=== PATIENT | male | born 1960 | race Caucasian/White ===

== ENCOUNTER 2017-10-24 05:36 | Outpatient (CLI) | payer BC ==
[~2017-10-24] VITALS: Ht 180.3 cm; Wt 102.1 kg
[~2017-10-24 05:36] MED LIST: AMLO1CAP5 PO; AMLO1TAB47 PO; BNZ20T PO; METO25TA2 PO; OMEP40CA36 PO; ROSU10TA12 PO; WRF2.5T PO
[2017-10-24] MEDS ORDERED: OMEP40CA36 PO (09:12)
[2017-10-24] MEDS ORDERED: ROSU10TA PO (09:12)
[2017-10-24] MEDS ORDERED: WARF2.5T PO (09:12)
[2017-10-24] MEDS ORDERED: BENA20TA72 PO (09:12)
== END 2017-10-24 09:30 | disposition home or self-care (01) ==
LOC: PREOP 05:36
PROVIDERS: ATTEND Surgery
DX: Z01.818 Encounter for other preprocedural examination (principal)

== ENCOUNTER → 2018-05-08 | Outpatient (CLI) | payer BC, OTHER ==
[~2018-05-08] MED LIST changes: +ACHD5005 PO; +ATOR20TA66 PO; +BENA20TA72 PO; +ENOX100D9 SQ; +ESCI20TA45 PO; +ROSU10TA PO; +WARF2.5T PO
[2018-05-08 10:26] LABS: BILIRUBIN,URINE NEGATIVE (NEGATIVE); CLARITY,URINE CLEAR; COLOR,URINE YELLOW; GLUCOSE, URINE (UA) NEGATIVE (NEGATIVE); KETONES,URINE NEGATIVE (NEGATIVE); LEUKOCYTE ESTERASE ,URINE 1+ (NEGATIVE); NITRITE,URINE NEGATIVE (NEGATIVE); PH,URINE 5 (5-9); PROTEIN,URINE 2+ (NEGATIVE); UROBILINOGEN,URINE NORMAL (NORMAL)
[2018-05-08 10:29] LABS: BASOPHILS % (AUTO) 1 % (0-10); EOSINOPHILS # (AUTO) 0.1 10^3/uL (0.0-0.3); EOSINOPHILS % (AUTO) 1 % (0-10); HEMATOCRIT 44 % (40-54); HEMOGLOBIN 15.4 G/DL (13.3-17.7); LYMPHOCYTES # (AUTO) 1.5 X 10^3 (1.0-4.0); LYMPHOCYTES % (AUTO) 19 % (12-44); MEAN CORPUSCULAR HEMOGLOBIN 32 PG (25-34); MEAN CORPUSCULAR HGB CONC 35 G/DL (32-36); MEAN CORPUSCULAR VOLUME 89 FL (80-99); MEAN PLATELET VOLUME 8.9 FL (7.4-10.4); MONOCYTES # (AUTO) 0.8 X 10^3 (0.0-1.0); MONOCYTES % (AUTO) 10 % (0-12); NEUTROPHILS # (AUTO) 5.5 X 10^3 (1.8-7.8); NEUTROPHILS % (AUTO) 70 % (42-75); PLATELET COUNT 308 10^3/uL (130-400); RED BLOOD COUNT 4.89 10^6/uL (4.35-5.85); RED CELL DISTRIBUTION WIDTH 13.4 % (10.0-14.5); WHITE BLOOD COUNT 7.9 10^3/uL (4.3-11.0)
[2018-05-08 10:34] LABS: WBC,URINE 0-2 /HPF
[2018-05-08 10:35] LABS: BACTERIA,URINE TRACE /HPF
[2018-05-08 10:45] LABS: ALANINE AMINOTRANSFERASE 34 U/L (0-55); ALBUMIN 4.3 GM/DL (3.2-4.5); ALKALINE PHOSPHATASE 107 U/L (40-136); BILIRUBIN,TOTAL 0.8 MG/DL (0.1-1.0); BUN/CREATININE RATIO 15; CALCIUM 9.5 MG/DL (8.5-10.1); CARBON DIOXIDE 21 MMOL/L (21-32); CHLORIDE 104 MMOL/L (98-107); GFR ESTIMATED > 60; GLUCOSE 126 MG/DL (70-105); POTASSIUM 4.2 MMOL/L (3.6-5.0); SODIUM 137 MMOL/L (135-145); TOTAL PROTEIN 7.5 GM/DL (6.4-8.2)
[2018-05-08 11:15] LABS: ERYTHROCYTE SEDIMENTATION RATE 18 MM/HR (0-30)
--- NOTE | 2018-05-08 13:12 | Diagnostic Imaging Report ---
CLINICAL INDICATION: Patient with right lower quadrant pain. EXAMINATION: CT scan of the abdomen and pelvis performed without IV contrast. Coronal and sagittal reformatted images are created. COMPARISON: None. FINDINGS: The appendix is enlarged measuring 13 mm in greatest width. Multiple appendicoliths are seen within the appendix and at the orifice of the appendix. There is small amount of adjacent fat stranding extending into the adjacent soft tissue. There is no evidence of intra-abdominal free air or significant fluid collection. There is mild atelectasis involving both lung bases. There are minimal spurs involving the lower lumbar spine. There is lower lumbar spine facet arthropathy. Incompletely imaged mechanical heart aortic valve is noted. There are multiple circumscribed low-density areas seen throughout the liver with most seen in the left side of the liver. The largest one measures 1.6 cm in greatest axial dimension. These likely represent cysts. Otherwise, remainder of the liver is unremarkable. There is some relatively increased density adjacent to the gallbladder fossa which may represent focal fatty sparing. The spleen, pancreas, gallbladder, and adrenal glands are unremarkable. Both kidneys are unremarkable with no hydronephrosis, mass, or urinary tract stone. There are small mesenteric lymph nodes seen. The bladder is partially fluid-filled. There is bladder wall thickening which may be related to incomplete distention, but cystitis cannot be completely excluded. Prostate gland is within normal limits as visualized. There is a few colonic diverticula with no CT evidence of diverticulitis. Abdominal aorta is nonaneurysmal. The extra-abdominal and extra-pelvic soft tissue structures are unremarkable. IMPRESSION: 1: Unruptured acute appendicitis. There is a small amount of free fluid adjacent to the appendix and right lower quadrant. 2: There is bladder wall thickening which may be related to incomplete fluid distention. Cystitis also cannot be completely excluded. 3: Likely liver cysts. Results of this report discussed with Dr. Bronson Madrigal via the telephone on 05/08/2018 at 1300 hrs. Dictated by: Dictated on workstation # [id number]
== END ==
LOC: RAD 10:10
PROVIDERS: ATTEND Internal Medicine
DX: K35.80 Unspecified acute appendicitis (principal); N32.89 Other specified disorders of bladder
CPT/HCPCS: 36415; 74176; 80053; 81000; 85025; 85652

== ENCOUNTER 2020-04-22 22:54 | Emergency (ER) | payer BC ==
[~2020-04-22] VITALS: Ht 180 cm; Wt 109.7 kg
[~2020-04-22 22:54] MED LIST changes: +OMEP40CA27 PO; -ROSU10TA PO; +ROSU10TA22 PO; -WARF2.5T PO
[2020-04-22] MEDS ORDERED: fentaNYL INJECTION 100 MCG/2 ML AMP IVP ONE (23:15)
[2020-04-22] MEDS ORDERED: LABETALOL HCL 20 MG/4 ML VIAL IV ONE (23:15)
[2020-04-22 23:20] LABS: BASOPHILS # (AUTO) 0.1 10^3/uL (0.0-0.1); BASOPHILS % (AUTO) 1 % (0-10); EOSINOPHILS # (AUTO) 0.1 10^3/uL (0.0-0.3); EOSINOPHILS % (AUTO) 1 % (0-10); HEMATOCRIT 43 % (40-54); HEMOGLOBIN 14.9 g/dL (13.3-17.7); LYMPHOCYTES # (AUTO) 1.3 10^3/uL (1.0-4.0); LYMPHOCYTES % (AUTO) 20 % (12-44); MEAN CORPUSCULAR HEMOGLOBIN 32 pg (25-34); MEAN CORPUSCULAR HGB CONC 35 g/dL (32-36); MEAN CORPUSCULAR VOLUME 91 fL (80-99); MONOCYTES # (AUTO) 0.6 10^3/uL (0.0-1.0); MONOCYTES % (AUTO) 9 % (0-12); NEUTROPHILS # (AUTO) 4.6 10^3/uL (1.8-7.8); NEUTROPHILS % (AUTO) 69 % (42-75); PLATELET COUNT 302 10^3/uL (130-400); WHITE BLOOD COUNT 6.7 10^3/uL (4.3-11.0)
[2020-04-22 23:31] LABS: INR 2.5 (0.8-1.4); PROTHROMBIN TIME PATIENT 27.3 SEC (12.2-14.7)
[2020-04-22 23:41] LABS: ALANINE AMINOTRANSFERASE 61 U/L (0-55); ALBUMIN 4.1 GM/DL (3.2-4.5); ALKALINE PHOSPHATASE 107 U/L (40-136); BILIRUBIN,TOTAL 0.5 MG/DL (0.1-1.0); BUN/CREATININE RATIO 15; CALCIUM 8.6 MG/DL (8.5-10.1); CARBON DIOXIDE 23 MMOL/L (21-32); CHLORIDE 102 MMOL/L (98-107); CREATININE SERUM 0.85 MG/DL (0.60-1.30); GFR ESTIMATED > 60; GLUCOSE 172 MG/DL (70-105); MAGNESIUM 1.9 MG/DL (1.6-2.4); POTASSIUM 3.8 MMOL/L (3.6-5.0); SODIUM 137 MMOL/L (135-145); TOTAL PROTEIN 7.1 GM/DL (6.4-8.2)
[2020-04-23] MEDS ORDERED: amLODIPine 10 MG (NORVASC) TAB PO ONE
[2020-04-23 00:02] LABS: TSH (THYROID ANALYZER) 7.82 UIU/ML (0.35-4.94)
--- NOTE | 2020-04-23 00:38 | ED General ---
General Chief Complaint: Cardiac/General Problems Stated Complaint: HIGH BP, JACOBS Nursing Triage Note: TO ED VIA POV AND AMBULATORY TO ROOM 6 TO WHICH FRANTICALLY CHASED PT STATING, "CALL ME SOON THE DR TELLS YOU WHAT IS GOING ON" THE THEN TOLD THIS INHALATION THERAPIST/RN TO HAVE PT CHARGE HIS PHONE, THE PT THEN THREW THE PHONE [employer] AT HIS . REMINDED THAT THERE ARE NO VISITORS AT THIS TIME R/T COVID AND SHE WOULD NEED TO WAIT IN CAR. DURING TRIAGE PT C/O HEADACHE FOR 10 DAYS AND STATES HE SAW PCP TODAY AND WAS GIVEN RX FOR PREDNISONE FOR "DEEP SINUSITIS". STATES HIS SBP WAS IN 180s AT HOME. DENIES VISION CHANGES. 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 Nursing Sepsis Screen: No Definite Risk Source of Information: Patient Exam Limitations: No Limitations History of Present Illness Date Seen by Provider: Apr 22, 2020 Time Seen by Provider: 23:04 Initial Comments This 59 year old gentleman presents to the ER with primary complaints of headache and hypertension. He notes headache has been present for about 10 days. He had visited his primary care provider and was placed on azithromycin and prednisone on suspicion that he was suffering from sinusitis. He noted duane vated blood pressure today at home with systolic blood pressures in the 180s. On arrival his systolic blood pressure was 209. He denies any neurologic changes except for some vision change a couple of days ago and persistent headache. He is on warfarin due to aortic valve replacement. The surgery was performed because of a bicuspid aortic valve. He denied excessive stimulant use or drug use. He does not smoke. He does intermittently drink alcohol stating he typically drinks about 3 beers 3 or 4 days a week. He reports not drinking any alcohol for about a week. Allergies and Home Medications Allergies Coded Allergies: Iodinated Contrast- Oral and IV Dye (Verified Allergy, Unknown, 10/24/17) Home Medications Amlodipine Besylate 10 Mg Tablet, 10 MG PO DAILY Prescribed by: COREEN LOPEZ on 04/23/20 0044 Atorvastatin Calcium 20 Mg Tablet, 20 MG PO HS, (Reported) Benazepril HCl 20 Mg Tablet, 20 MG PO HS, (Reported) Enoxaparin Sodium 100 Mg/1 Ml Syringe, 100 MG SQ BID Prescribed by: ZEUS INMAN on 05/09/18 1133 Escitalopram Oxalate 20 Mg Tablet, 20 MG PO HS, (Reported) Hydrocodone Bit/Acetaminophen 1 Tab Tab, 1 TAB PO Q6H PRN for PAIN-MODERATE Prescribed by: SHARLENE GOMEZ on 05/08/18 1616 Omeprazole 40 Mg Capsule.dr, 40 MG PO HS, (Reported) Warfarin Sodium 2.5 Mg Tablet, 2.5 MG PO HS, (Reported) Patient Home Medication List Home Medication List Reviewed: Yes Review of Systems Review of Systems Constitutional: no symptoms reported EENTM: see HPI Respiratory: no symptoms reported Cardiovascular: see HPI; No chest pain Gastrointestinal: no symptoms reported Genitourinary: no symptoms reported Musculoskeletal: no symptoms reported Skin: no symptoms reported Psychiatric/Neurological: See HPI Hematologic/Lymphatic: No Symptoms Reported Immunological/Allergic: no symptoms reported Past Fuhohya-Gndetb-Vfgyzf Hx Past Med/Social Hx: Reviewed Nursing Past Med/Soc Hx Patient Social History Alcohol Use: Regular Use Number of Drinks Today: AA Alcohol Beverage of Choice: Beer Recreational Drug Use: No Smoking Status: Former Smoker Type Used: Cigars, Smokeless Tobacco Former Smoker, Quit: May 07, 2008 Recent Foreign Travel: No Contact w/Someone Who Travel: No Recent Infectious Disease Expo: No Recent Hopitalizations: No Physical Abuse: No Sexual Abuse: No Mistreated: No Fear: No Seasonal Allergies Seasonal Allergies: Yes Past Medical History Surgeries: Yes Appendectomy, Cardiac, Open Heart Surgery, Valve Replacement Respiratory: Yes Sleep Apnea Currently Using CPAP: Yes (DOES NOT WEAR IT) Currently Using BIPAP: No Cardiac: Yes (AORTIC VALVE REPLACEMENT 2007) High Cholesterol, Hypertension, Valvular Heart Disease Neurological: No Vertigo Reproductive Disorders: No Sexually Transmitted Disease: No HIV/AIDS: No Gastrointestinal: Yes Gastroesophageal Reflux, Chronic Constipation Musculoskeletal: No Endocrine: No HEENT: Yes (GLASSES) Loss of Vision: Bilateral Hearing Impairment: Denies Cancer: No Psychosocial: Yes Depression Integumentary: No Blood Disorders: Yes (Anticoagulated on warfarin) Adverse Reaction/Blood Tranf: No (N/A) Physical Exam Vital Signs Vital Signs - First Documented 04/22/20 04/23/20 23:02 01:14 Temp 35.9 Pulse 81 Resp 20 B/P (MAP) 186/112 (136) Pulse Ox 97 O2 Delivery Room Air Capillary Refill : Less Than 3 Seconds Height, Weight, BMI Height: 5'11.00" Weight: 241lbs. 0.0oz. 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 as Tested Skin: Normal Color, Warm/Dry Progress/Results/Core Measures Suspected Sepsis Recent Fever Within 48 Hours: No Infection Criteria Present: None New/Unexplained Altered Menta: No Sepsis Screen: No Definite Risk SIRS Temperature: Pulse: 81 Respiratory Rate: 20 Laboratory Tests 04/22/20 23:10: White Blood Count 6.7 Blood Pressure 186 /112 Mean: 136 Laboratory Tests 04/22/20 23:10: Creatinine 0.85, INR Comment 2.5H, Platelet Count 302, Total Bilirubin 0.5 Results/Orders Lab Results Laboratory Tests Test 04/22/20 23:10 Range/Units White Blood Count 6.7 4.3-11.0 10^3/uL Red Blood Count 4.69 4.30-5.52 10^6/uL Hemoglobin 14.9 13.3-17.7 g/dL Hematocrit 43 40-54 % Mean Corpuscular Volume 91 80-99 fL Mean Corpuscular Hemoglobin 32 25-34 pg Mean Corpuscular Hemoglobin Concent 35 32-36 g/dL Red Cell Distribution Width 12.8 10.0-14.5 % Platelet Count 302 130-400 10^3/uL Mean Platelet Volume 9.0 9.0-12.2 fL Immature Granulocyte % (Auto) 0 % Neutrophils (%) (Auto) 69 42-75 % Lymphocytes (%) (Auto) 20 12-44 % Monocytes (%) (Auto) 9 0-12 % Eosinophils (%) (Auto) 1 0-10 % Basophils (%) (Auto) 1 0-10 % Neutrophils # (Auto) 4.6 1.8-7.8 10^3/uL Lymphocytes # (Auto) 1.3 1.0-4.0 10^3/uL Monocytes # (Auto) 0.6 0.0-1.0 10^3/uL Eosinophils # (Auto) 0.1 0.0-0.3 10^3/uL Basophils # (Auto) 0.1 0.0-0.1 10^3/uL Immature Granulocyte # (Auto) 0.0 0.0-0.1 10^3/uL Prothrombin Time 27.3 H 12.2-14.7 SEC INR Comment 2.5 H 0.8-1.4 Sodium Level 137 135-145 MMOL/L Potassium Level 3.8 3.6-5.0 MMOL/L Chloride Level 102 98-107 MMOL/L Carbon Dioxide Level 23 21-32 MMOL/L Anion Gap 12 5-14 MMOL/L Blood Urea Nitrogen 13 7-18 MG/DL Creatinine 0.85 0.60-1.30 MG/DL Estimat Glomerular Filtration Rate > 60 BUN/Creatinine Ratio 15 Glucose Level 172 H 70-105 MG/DL Calcium Level 8.6 8.5-10.1 MG/DL Corrected Calcium 8.5 8.5-10.1 MG/DL Magnesium Level 1.9 1.6-2.4 MG/DL Total Bilirubin 0.5 0.1-1.0 MG/DL Aspartate Amino Transf (AST/SGOT) 33 5-34 U/L Alanine Aminotransferase (ALT/SGPT) 61 H 0-55 U/L Alkaline Phosphatase 107 40-136 U/L B-Type Natriuretic Peptide 61.6 <100.0 PG/ML Total Protein 7.1 6.4-8.2 GM/DL Albumin 4.1 3.2-4.5 GM/DL Free Thyroxine 0.82 0.70-1.48 NG/DL TSH Spark[facility] Testing 7.82 H 0.35-4.94 UIU/ML Serum Alcohol < 10 <10 MG/DL My Orders Orders - COREEN KAYE MD Fentanyl Injection (Sublimaze Injection (04/22/20 23:15) Labetalol Injection (Normodyne Injection (04/22/20 23:15) Ed Iv/Invasive Line Start (04/22/20 23:09) Ekg Tracing (04/22/20 23:09) Monitor-Rhythm Ecg Trace Only (04/22/20 23:09) BNP (04/22/20 23:09) Cbc With Automated Diff (04/22/20 23:09) Comprehensive Metabolic Panel (04/22/20 23:09) Magnesium (04/22/20 23:09) Protime With Inr (04/22/20 23:09) Thyroid Analyzer (04/22/20 23:09) Ct Head Wo (04/22/20 23:09) Chest 1 View, Ap/Pa Only (04/22/20 23:17) Alcohol (04/22/20 23:19) Amlodipine Tablet (Norvasc Tablet) (04/23/20 00:00) Free T4 (Free Thyroxine) (04/22/20 23:10) Medications Given in ED Current Medications Medications Dose Ordered Sig/Opal Route Start Time Stop Time Status Last Admin Dose Admin Amlodipine Besylate 10 mg ONCE ONCE PO 04/23/20 00:00 04/23/20 00:01 DC 04/23/20 00:02 10 MG Fentanyl Citrate 75 mcg ONCE ONCE IVP 04/22/20 23:15 04/22/20 23:16 DC 04/22/20 23:14 75 MCG Labetalol HCl 20 mg ONCE ONCE IV 04/22/20 23:15 04/22/20 23:16 DC 04/22/20 23:14 20 MG Vital Signs/I&O 04/22/20 12 23:02 01:14 Temp 35.9 35.9 Pulse 81 71 Resp 20 16 B/P (MAP) 186/112 (136) 158/96 (136) Pulse Ox 97 O2 Delivery Room Air Room Air Capillary Refill : Less Than 3 Seconds Blood Pressure Mean: 136 Progress Note : Progress Note Headache was treated with fentanyl. Labetalol 20 mg IV was given for treatment of his blood pressure. These medications improved his headache greatly and dropped his blood pressure. Labetalol was followed with amlodipine 10 mg orally. His blood pressure remained in acceptable range. His severe persistent headache in the context of very high blood pressure and warfarin use prompted CT of the head. No acute abnormalities such as intracranial hemorrhage were identified. The suspected sinusitis was not seen on CT scan. He was advised to stop the antibiotics. He was also advised to stay away from alcohol use to avoid the possible labile blood pressures resulting from fluctuating alcohol use. ECG Initial ECG Impression Date: Apr 23, 2020 Initial ECG Impression Time: 23:08 Initial ECG Rate: 76 Initial ECG Rhythm: Normal Sinus Comment Sinus rhythm with no ST elevation or depression. GA interval slightly long at 221 ms. LVH with secondary repolarization noted. Diagnostic Imaging Diagonstic Imaging: CT Plain Films/CT/US/NM/MRI: head Comments CT head viewed by me and stat rad report reviewed. No acute abnormalities were appreciated. Specifically, there was no evidence of intracranial hemorrhage or sinusitis. Diagonstic Imaging: Xray Plain Films/CT/US/NM/MRI: chest Comments Chest x-ray viewed by me. Report not yet available. Borderline cardiomegaly with no other acute abnormalities appreciated. Departure Impression Primary Impression: Hypertensive emergency Additional Impression: Acute head injury Qualified Codes: S09.90XA - Unspecified injury of head, initial encounter Disposition: HOME, SELF-CARE Condition: Improved Departure-Patient Inst. Decision time for Depature: 00:40 Referrals: AMITA BAUMAN DO (PCP/Family) Primary Care Physician Patient Instructions: High Blood Pressure in Adults Add. Discharge Instructions: You may stop prednisone as you do not have acute sinusitis on your CT scan and prednisone may make your blood pressure worse. Also do not take NSAID medications such as ibuprofen or naproxen, as this can cause high blood pressure in some individuals. You may take Tylenol (acetaminophen) for your headache. Likewise you may also stop the azithromycin antibiotic. Avoid use of alcohol as this may cause significant fluctuations in your blood pressure. Drink plenty of water and avoid excessive salt. Also avoid stimulants such as caffeine, diet pills, decongestant medications, energy drinks, etc. that may elevate your blood pressure. Follow-up with your primary care provider soon as possible for a repeat blood pressure check and medication review. Start amlodipine as prescribed. Call or return to the emergency room if you have worsening symptoms. If you have more than one consecutive measurement greater than 180 on the top number and greater than 110 on the bottom number, or secondary symptoms of high blood pressure such as severe headache or changes in vision, please return to the emergency room. All discharge instructions reviewed with patient and/or family. Voiced understanding. Scripts Amlodipine Besylate (Amlodipine Besylate) 10 Mg Tablet 10 MG PO DAILY, #30 TAB Prov: COREEN KAYE MD 04/23/20 Copy Copies To 1: AMITA BAUMAN JOSHUA T MD Apr 23, 2020 00:38
[2020-04-23] MEDS ORDERED: AMLO-251 PO (00:44)
[2020-04-23 00:48] LABS: FREE T4 (FREE THYROXINE) 0.82 NG/DL (0.70-1.48)
[2020-04-23 01:14] VITALS: BP 158/96
--- NOTE | 2020-04-23 04:36 | Diagnostic Imaging Report ---
Indication: Hypertension There are postoperative changes from a median sternotomy. Heart size and pulmonary vascularity are normal. Lungs are clear. There are no effusions or pneumothoraces. IMPRESSION: No acute abnormalities in the chest Dictated by: Dictated on workstation # [id number]
--- NOTE | 2020-04-23 07:44 | Diagnostic Imaging Report ---
PROCEDURE: CT head without contrast. TECHNIQUE: Multiple contiguous axial images were obtained through the brain without the use of intravenous contrast. Auto Exposure Controls were utilized during the CT exam to meet ALARA standards for radiation dose reduction. INDICATION: Headache and elevated blood pressure. COMPARISON: None available. FINDINGS: No parenchymal hemorrhage, midline shift, or mass effect. Samuel-white matter differentiation is adequately preserved, without evidence of acute territorial infarct. No significant white matter changes. Ventricles, cisterns, and sulci are normal. There are no epidural or subdural collections. The orbits and globes are unremarkable. Visualized paranasal sinuses and mastoid air cells are clear. There is no calvarial lesion or fracture. The extracranial soft tissues are unremarkable. IMPRESSION: No acute intracranial abnormality. Findings are in agreement with initial teleradiology report. Dictated by: Dictated on workstation # [id number]
== END 2020-04-23 01:14 | disposition home or self-care (01) ==
LOC: EDUNIT# 22:54 → ER 22:56
DX: S09.90XA Unspecified injury of head, initial encounter (principal); I16.1 Hypertensive emergency; I10 Essential (primary) hypertension; E78.00 Pure hypercholesterolemia, unspecified; F32.9 Major depressive disorder, single episode, unspecified; K21.9 Gastro-esophageal reflux disease without esophagitis; Z87.891 Personal history of nicotine dependence; Z91.041 Radiographic dye allergy status; Z79.01 Long term (current) use of anticoagulants; X58.XXXA Exposure to other specified factors, initial encounter
CPT/HCPCS: 70450; 71045; 80053; 83735; 83880; 84439; 84443; 85025; 85610; 93005; 93041; 99284; G0480; 36415; 80320; 96374; 96375

== ENCOUNTER 2020-06-02 13:51 | Inpatient (IN) | payer BC ==
[~2020-06-02] VITALS: Ht 180.4 cm; Wt 131.0 kg
[~2020-06-02 13:51] MED LIST changes: +AMLO-251 PO; -ESCI20TA45 PO; +ESCI20TA56 PO
[2020-06-02] MEDS ORDERED: ACETAMINOPHEN 500 MG TAB (TYLENOL) ONE (14:26)
[2020-06-02] MEDS ORDERED: LACTATED RINGERS 1,000 ML IV ONE ×3 (14:26→18:15)
[2020-06-02] MEDS ORDERED: ACETAMINOPHEN 500 MG TAB (TYLENOL) PO PRN (14:45)
--- NOTE | 2020-06-02 14:47 | ED Respiratory ---
General Chief Complaint: Cough/Cold/Flu Symptoms Stated Complaint: FEVER,COUGH, POSSIBLE REACTION TO VACCINE Source: patient Exam Limitations: no limitations History of Present Illness Date Seen by Provider: Jun 02, 2020 Time Seen by Provider: 14:18 Initial Comments Patient presents ER by private conveyance from home with chief complaint of body aches chills fever T-max of 102. He says the symptoms started about 1:00 yesterday afternoon when he was having lunch in [place] with his . Earlier that morning they went to their primary care provider in [place] and had basic labs and were given vaccines for tetanus, influenza and pneumonia. Patient was not having any symptoms prior to this. Patient states his is asymptomatic and has no other known sick contacts. He has had a dry nonproductive cough. He was given a prescription for an albuterol MDI by his primary care team when he called them and relayed his symptoms. He has no history of lung disease. He does have a history of a bicuspid mitral valve replaced with mechanical device on Coumadin. They also prescribed him another CPAP machine which he has been reliant upon for 20 years. He says he has not actually been using it for the past 20 years. He also has not went and picked it up yet. He denies history of smoking. He denies a history of coronary artery disease. Allergies and Home Medications Allergies Coded Allergies: Iodinated Contrast Media (Verified Allergy, Unknown, 10/24/17) Home Medications Amlodipine Besylate 10 Mg Tablet, 10 MG PO HS, (Reported) Escitalopram Oxalate 20 Mg Tablet, 40 MG PO HS, (Reported) TAKES 2 (20MG) TABS Losartan Potassium 100 Mg Tablet, 100 MG PO HS, (Reported) Multivitamin 1 Each Tablet, 1 EACH PO DAILY, (Reported) Omeprazole 40 Mg Capsule.dr, 40 MG PO HS, (Reported) Pantoprazole Sodium 40 Mg Tablet.dr, 40 MG PO HS, (Reported) Sucralfate 1 Gm Tablet, 1 GM PO QIDACHS PRN for ULCER FLAREUP, (Reported) Ubidecarenone 30 Mg Capsule, 30 MG PO HS, (Reported) Warfarin Sodium 2.5 Mg Tablet, 2.5 MG PO HS, (Reported) [Osteo Biflex W/Turme] TAB, 1 EA PO HS, (Reported) Patient Home Medication List Home Medication List Reviewed: Yes Review of Systems Review of Systems Constitutional: chills, fever, malaise EENTM: No ear discharge, No ear pain Respiratory: cough; No phlegm; short of breath; No wheezing Cardiovascular: No chest pain, No palpitations Gastrointestinal: No abdominal pain, No nausea Genitourinary: No discharge, No dysuria Musculoskeletal: No back pain, No joint pain Psychiatric/Neurological: Denies Anxiety, Denies Depressed All Other Systems Reviewed Negative Unless Noted: Yes Past Ixqleor-Ymvpja-Qrekpa Hx Patient Social History Alcohol Use: Occasionally Uses Alcohol Beverage of Choice: Beer Smoking Status: Former Smoker Type Used: Cigars, Smokeless Tobacco Former Smoker, Quit: May 07, 2008 Recent Hopitalizations: No Seasonal Allergies Seasonal Allergies: Yes Past Medical History Surgeries: Yes Appendectomy, Cardiac, Open Heart Surgery, Valve Replacement Respiratory: Yes Sleep Apnea Currently Using CPAP: Yes (DOES NOT WEAR IT) Currently Using BIPAP: No Cardiac: Yes (AORTIC VALVE REPLACEMENT 2007) High Cholesterol, Hypertension, Valvular Heart Disease Neurological: No Vertigo Reproductive Disorders: No Sexually Transmitted Disease: No HIV/AIDS: No Gastrointestinal: Yes Gastroesophageal Reflux, Chronic Constipation Musculoskeletal: No Endocrine: No HEENT: Yes (GLASSES) Loss of Vision: Bilateral Hearing Impairment: Denies Cancer: No Psychosocial: Yes Depression Integumentary: No Blood Disorders: Yes (Anticoagulated on warfarin) Adverse Reaction/Blood Tranf: No (N/A) Physical Exam Vital Signs - First Documented 06/02/20 14:55 Temp 38.8 Pulse 102 Resp 36 B/P (MAP) 157/96 (116) Pulse Ox 98 O2 Delivery Room Air Capillary Refill : Height: 5'11.00" Weight: 241lbs. 0.0oz. 109.902195bk; 33.00 BMI Method:Stated General Appearance: WD/WN, moderate distress Eyes: Bilateral Eye Normal Inspection, Bilateral Eye PERRL, Bilateral Eye EOMI HEENT: PERRL/EOMI, TMs normal; No pharynx normal (Dry oral mucosa) Neck: non-tender, full range of motion, normal inspection Respiratory: lungs clear, normal breath sounds, no accessory muscle use, respiratory distress (Mild to moderate with tachypnea 35 and sat of 94 to 95% on room air.) Cardiovascular: normal peripheral pulses, regular rate, rhythm Gastrointestinal: normal bowel sounds, non tender, soft Neurologic/Psychiatric: alert, normal mood/affect Skin: normal color, warm/dry Focused Exam Sepsis Stage: Sepsis Possible Source: Pulmonary Lactate Level 06/02/20 14:20: Lactic Acid Level 1.79 Time of Focused Exam: 16:45 Respiratory: Lungs Clear, Normal Breath Sounds, No Accessory Muscle Use, Respiratory Distress (2lpm NC) Cardiovascular: Regular Rate, Rhythm, Normal Peripheral Pulses Capillary Refill: Less Than 3 Seconds Peripheral Pulses: 2+ Radial Pulses (R), 2+ Radial Pulses (L) Skin: normal color, warm/dry Lactic Acid Level Laboratory Tests Test 06/02/20 14:20 Lactic Acid Level 1.79 MMOL/L (0.50-2.00) Within 3hrs of presentation: Admin fluids, Admin ABX, Blood cultures prior to ABX's, Focus exam, Lactate level Progress/Results/Core Measures Suspected Sepsis SIRS Temperature: Pulse: Respiratory Rate: Laboratory Tests 06/02/20 14:20: White Blood Count 13.1H Blood Pressure / Mean: 06/02/20 14:20: Lactic Acid Level 1.79 Laboratory Tests 06/02/20 14:20: Creatinine 0.84, INR Comment 3.5H, Platelet Count 295, Total Bilirubin 1.3H Results/Orders Lab Results Laboratory Tests Test 06/02/20 14:20 06/02/20 14:45 Range/Units White Blood Count 13.1 H 4.3-11.0 10^3/uL Red Blood Count 4.72 4.30-5.52 10^6/uL Hemoglobin 15.0 13.3-17.7 g/dL Hematocrit 44 40-54 % Mean Corpuscular Volume 92 80-99 fL Mean Corpuscular Hemoglobin 32 25-34 pg Mean Corpuscular Hemoglobin Concent 34 32-36 g/dL Red Cell Distribution Width 13.1 10.0-14.5 % Platelet Count 295 130-400 10^3/uL Mean Platelet Volume 9.2 9.0-12.2 fL Immature Granulocyte % (Auto) 1 % Neutrophils (%) (Auto) 86 H 42-75 % Lymphocytes (%) (Auto) 6 L 12-44 % Monocytes (%) (Auto) 7 0-12 % Eosinophils (%) (Auto) 0 0-10 % Basophils (%) (Auto) 0 0-10 % Neutrophils # (Auto) 11.3 H 1.8-7.8 10^3/uL Lymphocytes # (Auto) 0.8 L 1.0-4.0 10^3/uL Monocytes # (Auto) 0.9 0.0-1.0 10^3/uL Eosinophils # (Auto) 0.0 0.0-0.3 10^3/uL Basophils # (Auto) 0.0 0.0-0.1 10^3/uL Immature Granulocyte # (Auto) 0.1 0.0-0.1 10^3/uL Neutrophils % (Manual) 82 % Lymphocytes % (Manual) 8 % Monocytes % (Manual) 7 % Band Neutrophils 3 % Blood Morphology Comment NORMAL Prothrombin Time 35.3 H 12.2-14.7 SEC INR Comment 3.5 H 0.8-1.4 Activated Partial Thromboplast Time 84 H 24-35 SEC Sodium Level 133 L 135-145 MMOL/L Potassium Level 3.8 3.6-5.0 MMOL/L Chloride Level 98 98-107 MMOL/L Carbon Dioxide Level 26 21-32 MMOL/L Anion Gap 9 5-14 MMOL/L Blood Urea Nitrogen 12 7-18 MG/DL Creatinine 0.84 0.60-1.30 MG/DL Estimat Glomerular Filtration Rate > 60 BUN/Creatinine Ratio 14 Glucose Level 133 H 70-105 MG/DL Lactic Acid Level 1.79 0.50-2.00 MMOL/L Calcium Level 8.8 8.5-10.1 MG/DL Corrected Calcium 8.7 8.5-10.1 MG/DL Total Bilirubin 1.3 H 0.1-1.0 MG/DL Aspartate Amino Transf (AST/SGOT) 23 5-34 U/L Alanine Aminotransferase (ALT/SGPT) 45 0-55 U/L Alkaline Phosphatase 82 40-136 U/L C-Reactive Protein High Sensitivity 6.39 H 0.00-0.50 MG/DL Total Protein 7.0 6.4-8.2 GM/DL Albumin 4.1 3.2-4.5 GM/DL Procalcitonin 0.13 H <0.10 NG/ML Coronavirus (COVID-19)(PCR) Negative Negative Coronavirus 2018 (BRUNO) Negative Negative Blood Gas Puncture Site UNK Blood Gas Patient Temperature 101.8 Arterial Blood pH 7.39 7.37-7.43 Arterial Blood Partial Pressure CO2 46 H 35-45 MMHG Arterial Blood Partial Pressure O2 55 L 79-93 MMHG Arterial Blood HCO3 27 23-27 MMOL/L Arterial Blood Total CO2 27.9 21.0-31.0 MMOL/L Arterial Blood Oxygen Saturation 74 L 94-100 % Arterial Blood Base Excess 2.4 -2.5-2.5 MMOL/L Joaquim Test UNK Blood Gas Ventilator Setting NO Blood Gas Inspired Oxygen N/A Micro Results Microbiology 06/02/20 Influenza Types A,B Antigen (VIJI) - Final, Complete My Orders Orders - ANSON LAI Lactated Ringers (Lr 1000 Ml Iv Solution (06/02/20 14:26) Acetaminophen Tablet (Tylenol Tablet) (06/02/20 14:26) Cbc With Automated Diff (06/02/20 14:39) Comprehensive Metabolic Panel (06/02/20 14:39) Blood Culture (06/02/20 14:39) Sputum Culture (06/02/20 14:39) Urinalysis (06/02/20 14:39) Urine Culture (06/02/20 14:39) Protime With Inr (06/02/20 14:39) Partial Thromboplastin Time (06/02/20 14:39) Chest 1 View, Ap/Pa Only (06/02/20 14:39) Acetaminophen Tablet (Tylenol Tablet) (06/02/20 14:45) Ed Iv/Invasive Line Start (06/02/20 14:39) Ed Iv/Invasive Line Start (06/02/20 14:39) Vital Signs Adult Sepsis Patie Q15M (06/02/20 14:39) O2 (06/02/20 14:39) Remove Rings In Anticipation O (06/02/20 14:39) Lactic Acid Analyzer (06/02/20 14:39) Influenza A And B Antigens (06/02/20 14:39) Lactated Ringers (Lr 1000 Ml Iv Solution (06/02/20 14:45) Covid 19 Inhouse Test (06/02/20 14:39) Coronavirus Sars-Cov-2 So 2018 (06/02/20 14:39) Arterial Blood Gas (06/02/20 14:39) Procalcitonin (Pct) (06/02/20 14:47) Hs C Reactive Protein (06/02/20 14:47) Manual Differential (06/02/20 14:20) General/Regular (06/02/20 Lunch) Piperacillin Sodium/Tazobactam (Zosyn Vi (06/02/20 15:45) Vancomycin Injection (Vancomycin Injecti (06/02/20 15:44) Medications Given in ED Vital Signs/I&O 06/02/20 06/02/20 14:55 14:55 Temp 38.8 Pulse 102 Resp 36 B/P (MAP) 157/96 (116) Pulse Ox 98 O2 Delivery Room Air 06/03/20 00:00 Intake Total 1000 ml Balance 1000 ml Capillary Refill : Progress Note : Time: 14:46 Progress Note The patient deposits that he thinks the vaccines caused his symptoms today. His symptoms started within a couple hours and are more likely to be from an infectious source. We have ordered COVID-19 testing, influenza testing, septic work-up because of his tachypnea, fever and heart rate in the 90s. We have ordered 2 L of fluids and held off on any antibiotics until we see evidence of a bacterial infection. PT/INR, CRP and procalcitonin. Diagnostic Imaging Diagonstic Imaging: Xray Plain Films/CT/US/NM/MRI: chest Comments NAME: PASTORA ZARATE [facility] REC#: [id number] PT STATUS: REG ER : 1960 PHYSICIAN: ANSON LAI MD ADMIT DATE: 06/02/20/ER Draft Date of Exam:06/02/20 CHEST 1 VIEW, AP/PA ONLY HISTORY: Cough and fever, sepsis. COMPARISON: 04/22/2020. TECHNIQUE: Frontal view of the chest. FINDINGS: There is hazy opacity in the left midlung. No pleural effusion or pneumothorax is seen. The cardiac silhouette is mildly large but stable since the prior exam. Sternotomy wires are noted. IMPRESSION: Hazy opacity in the left midlung, may represent infection in the appropriate clinical setting. Dictated on workstation # [id number] Dict: 06/02/20 1536 Trans: 06/02/[address] [facility] [id number] Interpreted by: PAKO RING MD Electronically signed by: Reviewed: Reviewed by Me Departure Communication (Admissions) Time/Spoke to Admitting Phy: 17:00 Discussed the case with Dr. Forte and she agrees to take the patient to the floor on Rocephin and azithromycin. Impression Primary Impression: Pneumonia Qualified Codes: J18.9 - Pneumonia, unspecified organism Additional Impressions: Person under investigation for COVID-19 Acute respiratory failure with hypoxemia Disposition: ADMITTED INPATIENT Condition: Stable (ERASED) Admissions Decision to Admit Reason: Admit from ER (General) Decision to Admit/Date: Jun 03, 2020 Time/Decision to Admit Time: 16:00 Departure-Patient Inst. Referrals: AMITA BAUMAN DO (PCP/Family) Primary Care Physician ANSON LAI Jun 02, 2020 14:47
[2020-06-02 14:51] LABS: ABG BASE EXCESS 2.4 MMOL/L (-2.5-2.5); ABG OXYGEN SATURATION 74 % (94-100); ABG PCO2 46 MMHG (35-45); ABG PH 7.39 (7.37-7.43); ABG PO2 55 MMHG (79-93); ABG TCO2 27.9 MMOL/L (21.0-31.0)
[2020-06-02 14:53] LABS: PATIENT TEMP 101.8; VENTILATOR NO
[2020-06-02 14:53] LABS: BASOPHILS % (AUTO) 0 % (0-10); EOSINOPHILS % (AUTO) 0 % (0-10); HEMATOCRIT 44 % (40-54); LYMPHOCYTES # (AUTO) 0.8 10^3/uL (1.0-4.0); LYMPHOCYTES % (AUTO) 6 % (12-44); MEAN CORPUSCULAR HEMOGLOBIN 32 pg (25-34); MEAN CORPUSCULAR HGB CONC 34 g/dL (32-36); MEAN CORPUSCULAR VOLUME 92 fL (80-99); MEAN PLATELET VOLUME 9.2 fL (9.0-12.2); MONOCYTES # (AUTO) 0.9 10^3/uL (0.0-1.0); MONOCYTES % (AUTO) 7 % (0-12); NEUTROPHILS # (AUTO) 11.3 10^3/uL (1.8-7.8); NEUTROPHILS % (AUTO) 86 % (42-75); PLATELET COUNT 295 10^3/uL (130-400); WHITE BLOOD COUNT 13.1 10^3/uL (4.3-11.0)
[2020-06-02 14:56] LABS: ALBUMIN 4.1 GM/DL (3.2-4.5)
[2020-06-02 14:57] LABS: CHLORIDE 98 MMOL/L (98-107); INR 3.5 (0.8-1.4); POTASSIUM 3.8 MMOL/L (3.6-5.0); PROTHROMBIN TIME PATIENT 35.3 SEC (12.2-14.7); SODIUM 133 MMOL/L (135-145)
[2020-06-02 14:58] LABS: CALCIUM 8.8 MG/DL (8.5-10.1)
[2020-06-02 14:59] LABS: GLUCOSE 133 MG/DL (70-105)
[2020-06-02 15:00] LABS: CARBON DIOXIDE 26 MMOL/L (21-32)
[2020-06-02 15:01] LABS: BILIRUBIN,TOTAL 1.3 MG/DL (0.1-1.0)
[2020-06-02 15:03] LABS: ALKALINE PHOSPHATASE 82 U/L (40-136); CREATININE SERUM 0.84 MG/DL (0.60-1.30); GFR ESTIMATED > 60
[2020-06-02 15:04] LABS: BUN/CREATININE RATIO 14
[2020-06-02 15:06] LABS: ALANINE AMINOTRANSFERASE 45 U/L (0-55)
[2020-06-02 15:08] LABS: BAND NEUTROPHILS 3 %; LYMPHOCYTES % (MANUAL) 8 %; MONOCYTES % (MANUAL) 7 %; NEUTROPHILS % (MANUAL) 82 %; RBC MORPH NORMAL
--- NOTE | 2020-06-02 15:38 | Diagnostic Imaging Report ---
HISTORY: Cough and fever, sepsis. COMPARISON: 04/22/2020. TECHNIQUE: Frontal view of the chest. FINDINGS: There is hazy opacity in the left midlung. No pleural effusion or pneumothorax is seen. The cardiac silhouette is mildly large but stable since the prior exam. Sternotomy wires are noted. IMPRESSION: Hazy opacity in the left midlung, may represent infection in the appropriate clinical setting. Dictated by: Dictated on workstation # [id number]
[2020-06-02] MEDS ORDERED: VANCOMYCIN INJECTION 2,000 MG in NS IV 500 ML 500 ML IV ONE (15:44)
[2020-06-02] MEDS ORDERED: PIPERACILLIN SODIUM/TAZOBACTAM 4.5 GM in NS (IVPB) 100 ML IV ONE (15:45)
--- NOTE | 2020-06-02 17:30 | NUR ---
PT ADMITTED TO ROOM 430 AT THIS TIME. BEDSIDE REPORT RECEIVED. ORIENTED PT TO ROOM/CALL LIGHT.
--- NOTE | 2020-06-02 19:17 | NUR ---
PHARMACY NOTIFIED OF MEDICATIONS NOT IN [facility]. PHARMACY REPORTS THEY HAVE RECEIVED BRIDGE ORDERS.
[2020-06-02] MEDS: LACTATED RINGERS 1,000 ML IV SCH (19:20)
[2020-06-02 19:30] VITALS: BP 134/71
[2020-06-02] MEDS ORDERED: ONDANSETRON 4 MG/2 ML (SDV) Z0FRAN IV PRN (19:30)
[2020-06-02] MEDS ORDERED: CATHETER FLUSH 10 ML SYR IV PRN (19:30)
[2020-06-02] MEDS: warFARin 2.5 MG (COUMADIN) TAB PO SCH (20:04)
[2020-06-02] MEDS: cefTRIAXone 1,000 MG/SWFI 10 ML IV PUSH IV SCH ×2 (20:04)
[2020-06-02] MEDS: AZITHROMYCIN 500 MG/NS 250 ML IVPB IV SCH ×2 (20:39)
[2020-06-03] VITALS (9 sets, daily range): BP systolic 104–159; BP diastolic 57–84
[2020-06-03] MEDS: LACTATED RINGERS 1,000 ML IV SCH ×4 (02:37→18:04)
[2020-06-03] MEDS ORDERED: RT-ALBUTEROL INHALER HFA (VENTOLIN HFA) 18 GM IH PRN (04:30)
[2020-06-03 06:12] LABS: BASOPHILS # (AUTO) 0.1 10^3/uL (0.0-0.1); BASOPHILS % (AUTO) 0 % (0-10); EOSINOPHILS % (AUTO) 0 % (0-10); HEMATOCRIT 40 % (40-54); HEMOGLOBIN 13.7 g/dL (13.3-17.7); LYMPHOCYTES # (AUTO) 1.1 10^3/uL (1.0-4.0); LYMPHOCYTES % (AUTO) 7 % (12-44); MEAN CORPUSCULAR HEMOGLOBIN 32 pg (25-34); MEAN CORPUSCULAR HGB CONC 34 g/dL (32-36); MEAN CORPUSCULAR VOLUME 93 fL (80-99); MEAN PLATELET VOLUME 9.2 fL (9.0-12.2); MONOCYTES # (AUTO) 1.6 10^3/uL (0.0-1.0); MONOCYTES % (AUTO) 10 % (0-12); NEUTROPHILS # (AUTO) 12.5 10^3/uL (1.8-7.8); NEUTROPHILS % (AUTO) 82 % (42-75); PLATELET COUNT 257 10^3/uL (130-400); WHITE BLOOD COUNT 15.3 10^3/uL (4.3-11.0)
[2020-06-03 06:21] LABS: INR 2.6 (0.8-1.4); PROTHROMBIN TIME PATIENT 28.1 SEC (12.2-14.7)
[2020-06-03 06:29] LABS: ALANINE AMINOTRANSFERASE 31 U/L (0-55); ALBUMIN 3.6 GM/DL (3.2-4.5); ALKALINE PHOSPHATASE 68 U/L (40-136); BILIRUBIN,TOTAL 1.3 MG/DL (0.1-1.0); BUN/CREATININE RATIO 15; CALCIUM 8.4 MG/DL (8.5-10.1); CARBON DIOXIDE 23 MMOL/L (21-32); CHLORIDE 101 MMOL/L (98-107); CREATININE SERUM 0.78 MG/DL (0.60-1.30); GFR ESTIMATED > 60; GLUCOSE 112 MG/DL (70-105); POTASSIUM 3.5 MMOL/L (3.6-5.0); SODIUM 135 MMOL/L (135-145); TOTAL PROTEIN 6.3 GM/DL (6.4-8.2)
--- NOTE | 2020-06-03 06:58 | Diagnostic Imaging Report ---
HISTORY: Pneumonia. COMPARISON: 06/02/2020 TECHNIQUE: Frontal view of the chest. FINDINGS: Lung volumes are decreased. There does appear to be increased airspace opacity at the lung bases bilaterally. The cardiac silhouette is mildly prominent but stable in size. Sternotomy wires and valve prosthesis are noted. There is no pleural effusion or pneumothorax. IMPRESSION: Bibasilar airspace opacities, may be due to atelectasis or infiltrate. These are likely accentuated by the decreased lung volumes. Dictated by: Dictated on workstation # [id number]
[2020-06-03] MEDS: ACETAMINOPHEN 325 MG TABLET PO PRN ×2 (08:10→15:21)
--- NOTE | 2020-06-03 09:28 | History & Physical-Hospitalist ---
History of Present Illness HPI/Chief Complaint Pt is a 59yoCm with a PMH of HTN, HLD, and aortic valve replacement who presented to the ER due to fatigue, fever, and myalagias. He states that on Thursday 06/01 he got a flu, pneumonia,and TDAP vaccine and then felt like h 'got hit by a truck." This symptoms persisted and he was concerned he was having a reaction to the vaccination. He reports fever up to 100.8 at home with cough. He reports feeling better this morning but still not well yet. Source: patient Date Seen 06/03/20 Time Seen by a Provider: 08:00 Attending Physician Wanda Forte MD PCP Bronson Madrigal DO Referring Physician Date of Admission Jun 02, 2020 at 17:00 Home Medications & Allergies Home Medications Reviewed patient Home Medication Reconciliation performed by pharmacy medication reconciliations point of care technician and/or nursing. Patients Allergies have been reviewed. Allergies Allergies Coded Allergies Iodinated Contrast Media (Verified Allergy, Unknown, 10/24/17) Past Fyibzhh-Lnpboy-Avhowc Hx Past Med/Social Hx: Reviewed Nursing Past Med/Soc Hx Patient Social History Marrital Status: Alcohol Use: Occasionally Uses Alcohol Beverage of Choice: Beer Recreational Drug Use: No Smoking Status: Former Smoker Former Smoker, Quit: May 07, 2008 Type Used: Smokeless Tobacco Recent Foreign Travel: No Contact w/other who traveled: No Recent Hopitalizations: No Recent Infectious Disease Expo: No Immunizations Up To Date Date of Influenza Vaccine: Jun 01, 2020 Seasonal Allergies Seasonal Allergies: Yes Past Medical History Surgeries: Appendectomy, Cardiac, Open Heart Surgery, Valve Replacement Currently Using CPAP: Yes (DOES NOT WEAR IT) Currently Using BIPAP: No Cardiac: High Cholesterol, Hypertension, Valvular Heart Disease Neurological: Vertigo Reproductive: No Sexually Transmitted Disease: No HIV/AIDS: No Gastrointestinal: Gastroesophageal Reflux, Chronic Constipation Loss of Vision: Bilateral Hearing Impairment: Denies Psychosocial: Depression History of Blood Disorders: Yes (Anticoagulated on warfarin) Adverse Reaction to Blood [place]: No (N/A) Family History Reviewed Nursing Family Hx No Pertinent Family Hx Review of Systems Constitutional: fever, malaise EENTM: no symptoms reported Respiratory: cough; No phlegm; short of breath Cardiovascular: No chest pain, No edema Gastrointestinal: No abdominal pain, No constipation, No nausea, No vomiting Genitourinary: no symptoms reported Musculoskeletal: see HPI Skin: no symptoms reported Psychiatric/Neurological: No Symptoms Reported Physical Exam Physical Exam Vital Signs Vital Signs - First Documented 06/02/20 06/02/20 06/03/20 14:55 18:25 04:18 Temp 38.8 Pulse 102 Resp 36 B/P (MAP) 157/96 (116) Pulse Ox 98 O2 Delivery Room Air O2 Flow Rate 2.00 FiO2 24 Capillary Refill : Less Than 3 Seconds Height, Weight, BMI Height: 5'11.00" Weight: 241lbs. 0.0oz. 109.526112iz; 40.25 BMI Method:Stated General Appearance: No Apparent Distress, WD/WN, Obese HEENT: PERRL/EOMI, Moist Mucous Membranes Neck: Normal Inspection, Supple Respiratory: Lungs Clear, No Accessory Muscle Use, No Respiratory Distress Cardiovascular: Regular Rate, Rhythm, No Murmur Gastrointestinal: Normal Bowel Sounds, Non Tender, Soft Extremity: No Calf Tenderness, No Pedal Edema Neurologic/Psychiatric: Alert, Oriented x3, Normal Mood/Affect Results Results/Procedures Labs Laboratory Tests 06/02/20 14:20 06/03/20 05:46 Patient resulted labs reviewed. Imaging: Reviewed Imaging Report Imaging [facility] [place] NAME: FERNANDEZAUDREYLurdes[facility] REC#: [id number] PT STATUS: ADM IN : 1960 PHYSICIAN: WANDA FORTE MD ADMIT DATE: 06/02/20 Signed Date of Exam:06/03/20 CHEST 1 VIEW, AP/PA ONLY HISTORY: Pneumonia. COMPARISON: 06/02/2020 TECHNIQUE: Frontal view of the chest. FINDINGS: Lung volumes are decreased. There does appear to be increased airspace opacity at the lung bases bilaterally. The cardiac silhouette is mildly prominent but stable in size. Sternotomy wires and valve prosthesis are noted. There is no pleural effusion or pneumothorax. IMPRESSION: Bibasilar airspace opacities, may be due to atelectasis or infiltrate. These are likely accentuated by the decreased lung volumes. Dictated by: Dictated on workstation # [id number] Dict: 06/03/20 0653 Trans: 06/03/2008 [id number] Interpreted by: PAKO RING MD Electronically signed by: PAKO RING MD 06/03/2008 Assessment/Plan Admission Diagnosis Sepsis from CAP Admission Status: Inpatient Order (span 2 midnights) Reason for Inpatient Admission: see below Assessment and Plan Sepsis from CAP Continue on IV abx Await cultures Last fever last night, trend lactic acid 1.79 WBC up slightly, trend COVID negative Wean oxygen as able HTN HLD Continue home meds Bp well controlled Valve replacement Chronic anticoagulation Patient reports mitral valve replacement to ER and Aortic to me Regardless continue his home anticoagulation INR 2.6 this AM Trend INR DVT ppx: On warfarin already WANDA FORTE MD Jun 03, 2020 09:28
[2020-06-03] MEDS ORDERED: MULT-1136 PO (11:32)
[2020-06-03] MEDS ORDERED: WRF2.5T PO (11:32)
[2020-06-03] MEDS ORDERED: OSTEO BIFLEX PO (11:32)
[2020-06-03] MEDS ORDERED: PANT40TA52 PO (11:32)
[2020-06-03] MEDS ORDERED: UBID30CA13 PO (11:32)
[2020-06-03] MEDS ORDERED: LOSA100T57 PO (11:32)
[2020-06-03] MEDS ORDERED: [UNRECOGNIZED DRUG - OTHER] PO (11:32)
[2020-06-03] MEDS ORDERED: SUCR1TAB36 PO (11:32)
[2020-06-03] MEDS ORDERED: AMLO-251 PO (11:33)
--- NOTE | 2020-06-03 13:02 | NUR ---
SPOKE WITH THE PT , ALSO CALLED HIS , CALLED [facility] AND DR. HAINES OFFICE TO COMPLETE THE MED REC THE FOLLOWING ARE FILL DATES FROM [facility]: 03-18-2020 LOSARTAN 100MG #90/90DS 04-07-2020 OMEPRAZOLE 40MG #90/90DS 04-12-2020 CARAFATE 1GM #60 04-22-2020 ESCITALOPRAM 20MG #180/90DS 05-03-2020 WARFARIN 2.5MG #90/90DS 05-17-2020 PANTOPRAZOLE 40MG #30/30DS 05-27-2020 AMLODIPINE 10MG #90/90DS THE PT WAS NOT ABLE TO GIVE ME ANY INFORMATION ABOUT HIS MEDS AND REFERRED ME TO HIS (ADELINA) AND SHE WAS ABLE TO LIST HIS MEDICATIONS. I ALSO CALLED DR. HAINES OFFICE AND VERIFIED THAT THE PT WAS PANTOPRAZOLE AND OMEPRAZOLE. ACCORDING TO CANDIDO THE PT WAS SEEN BY GITA BAUMAN 05-17-2020 AND AT THAT TIME THE OMEPRAZOLE WAS DISCONTINUED AND PANTOPRAZOLE WAS STARTED. I SPOKE WITH THE PT AND HE WAS UNAWARE OF THIS CHANGE AND HAD BEEN TAKING BOTH MEDS AT THE SAME TIME. WHEN I SPOKE WITH ADELINA SHE LET ME KNOW THE PT WAS ON AMLODIPINE AND THOUGHT IT WAS A COMBINATION DRUG- [facility] LAST FILLED AMLODIPINE BESYLATE 10MG ON 05-27-2020 #90/90DS AND PRIOR TO THAT THEY HAD FILLED AMLODIPINE/BENAZEPRIL 10/20MG (LAST FILLED JAN 2020). CANDIDO Regan/ DR. ALMONTE OFFICE CONFIRMED THIS MED CHANGE AND WHEN I CALLED ADELINA AGAIN SHE WAS UNSURE OF THIS BUT SAID THE PT IS TAKING WHATEVER [facility] FILLED LAST OTC MEDS: [employer] COQ10 OSTEO BI FLEX W/ TURMERIC
[2020-06-03] MEDS ORDERED: SUCRALFATE 1 GM (CARAFATE) TAB PO PRN (14:15)
--- NOTE | 2020-06-03 15:24 | NUR ---
Received dietary consult for MST score. Given current PO intake, pt is not at risk for malnutrition at this time. Serene Claire, MS RD LD
[2020-06-03] MEDS: warFARin 2.5 MG (COUMADIN) TAB PO SCH (17:15)
[2020-06-03] MEDS: LACTOBACILLUS ACIDOPHILUS (PROBIOTIC) CAPSULE PO SCH (17:15)
[2020-06-03] MEDS: cefTRIAXone 1,000 MG/SWFI 10 ML IV PUSH IV SCH ×2 (18:39)
[2020-06-03] MEDS: AZITHROMYCIN 500 MG/NS 250 ML IVPB IV SCH ×2 (19:31)
[2020-06-03] MEDS: RT-ALBUTEROL INHALER HFA (VENTOLIN HFA) 18 GM IH SCH ×2 (19:58→20:06)
[2020-06-03] MEDS ORDERED: UBIDECARENONE 30 MG PO SCH (21:00)
[2020-06-03] MEDS ORDERED: warFARin 2.5 MG (COUMADIN) TAB PO SCH (21:00)
[2020-06-03] MEDS ORDERED: PANTOPRAZOLE 40 MG (PROTONIX) TAB PO SCH (21:00)
[2020-06-03] MEDS ORDERED: [UNRECOGNIZED DRUG - OTHER] PO SCH (21:00)
[2020-06-03] MEDS ORDERED: OSTEO BIFLEX PO SCH (21:00)
[2020-06-03] MEDS ORDERED: LOSARTAN 100 MG (COZAAR) TABLET PO SCH (21:00)
[2020-06-03] MEDS ORDERED: amLODIPine 10 MG (NORVASC) TAB PO SCH (21:00)
[2020-06-03] MEDS ORDERED: ESCITALOPRAM OXALATE 40 MG PO SCH (21:00)
[2020-06-03] MEDS ORDERED: NON-FORMULARY MEDICATION 1 EA EA (Omeprazole 40 MG) PO SCH (21:00)
[2020-06-04 06:35] LABS: HEMOGLOBIN 13.5 g/dL (13.3-17.7); MEAN PLATELET VOLUME 9.1 fL (9.0-12.2); WHITE BLOOD COUNT 11.5 10^3/uL (4.3-11.0)
[2020-06-04 06:47] LABS: CHLORIDE 101 MMOL/L (98-107); POTASSIUM 3.6 MMOL/L (3.6-5.0); SODIUM 135 MMOL/L (135-145)
[2020-06-04 06:48] LABS: CALCIUM 8.5 MG/DL (8.5-10.1); GLUCOSE 112 MG/DL (70-105)
[2020-06-04 06:50] LABS: CARBON DIOXIDE 22 MMOL/L (21-32)
[2020-06-04 06:52] LABS: CREATININE SERUM 0.65 MG/DL (0.60-1.30); GFR ESTIMATED > 60; INR 2.3 (0.8-1.4); PROTHROMBIN TIME PATIENT 25.2 SEC (12.2-14.7)
[2020-06-04 06:53] LABS: BUN/CREATININE RATIO 14
[2020-06-04] MEDS ORDERED: MULTIVIT W/MINERALS TAB (THERAGRAN M) PO SCH (07:00)
[2020-06-04] MEDS: RT-ALBUTEROL INHALER HFA (VENTOLIN HFA) 18 GM IH SCH (08:02)
[2020-06-04 08:07] VITALS: BP 129/74
[2020-06-04] MEDS: ACETAMINOPHEN 325 MG TABLET PO PRN (08:52)
[2020-06-04] MEDS: LACTOBACILLUS ACIDOPHILUS (PROBIOTIC) CAPSULE PO SCH ×2 (08:52→13:14)
--- NOTE | 2020-06-04 09:34 | Discharge Summary ---
Diagnosis/Chief Complaint Date of Admission Jun 02, 2020 at 17:00 Date of Discharge Admission Diagnosis Sepsis from CAP Primary Care Bronson Madrigal DO Discharge Summary Discharge Physical Exam Allergies: Coded Allergies: Iodinated Contrast Media (Verified Allergy, Unknown, 10/24/17) Vitals & I&Os Vital Signs Date Time Temp Pulse Resp B/P (MAP) Pulse Ox O2 Delivery O2 Flow Rate FiO2 06/04/20 14:20 06/04/20 08:07 36.5 78 20 91 Room Air 06/03/20 23:33 2.00 06/03/20 04:18 24 General Appearance: No Apparent Distress, WD/WN Respiratory: Lungs Clear, No Accessory Muscle Use, No Respiratory Distress Cardiovascular: Regular Rate, Rhythm, No Murmur Neurologic/Psychiatric: Alert, Oriented x3, Normal Mood/Affect Hospital Course Pt was admitted with sepsis from CAP. He was treated with IV abx and did well and was able to be titrated off of oxygen. Home oxygen study was done and revealed 1lpm. He improved quickly and was able to be discharged home at his request in stable and improved condition to follow up with his primary care doctor. Labs (last 24 hrs) Microbiology 06/02/20 Influenza Types A,B Antigen (VIJI) - Final, Complete 06/02/20 Blood Culture - Preliminary, Resulted No growth Patient resulted labs reviewed. Pending Labs Imaging: Reviewed Imaging Report Discussion & Recommendations Discharge Planning: >30 minutes discharge planning Discharge Home Medications: Active Scripts Active Azithromycin 250 Mg Tablet 250 Mg PO DAILY Cephalexin 500 Mg Tablet 500 Mg PO BID Reported Amlodipine Besylate 10 Mg Tablet 10 Mg PO HS Pantoprazole Sodium 40 Mg Tablet. 40 Mg PO HS [Osteo Biflex W/Turme] Tab 1 Ea PO HS Coq-10 (Ubidecarenone) 30 Mg Capsule 30 Mg PO HS Multivitamin 1 Each Tablet 1 Each PO DAILY Carafate (Sucralfate) 1 Gm Tablet 1 Gm PO QIDACHS PRN Losartan Potassium 100 Mg Tablet 100 Mg PO HS Warfarin Sodium 2.5 Mg Tablet 2.5 Mg PO HS Escitalopram Oxalate 20 Mg Tablet 40 Mg PO HS TAKES 2 (20MG) TABS Omeprazole 40 Mg Capsule. 40 Mg PO HS Instructions to patient/family Please see electronic discharge instructions given to patient. WANDA ACHARYA MD Jun 04, 2020 09:34
[2020-06-04] MEDS ORDERED: AZIT250T12 PO (09:44)
[2020-06-04] MEDS ORDERED: CEPH500T PO (09:44)
--- NOTE | 2020-06-04 09:53 | Discharge Inst-Simple/Standard ---
Discharge Inst-Standard Patient Instructions/Follow Up Plan of Care/Instructions/FU: Please continue to take your medications as written. Please follow up with Dr Madrigal to follow up this hospital stay. Activity as Tolerated: Yes Discharge Diet: No Restrictions Return to The Hospital For: Fever, chest pain, shortness of breath, worsening cough, confusion, if you feel you are getting worse. WANDA ACHARYA MD Jun 04, 2020 09:53
--- NOTE | 2020-06-04 10:40 | NUR ---
pt was placed on room air for 30 minutes. pt desaturated to 88%. pt was then placed on 1l nc for 3 minutes. pt will need 1l continuously. Addendum: 06/04/20 at 1040 by MARGOT DAVIS RT Amended: Links added.
--- NOTE | 2020-06-04 11:20 | NUR ---
DISCHARGE PLANNING: Patient will discharge today to home with new order for continuous Oxygen. He will need 1 L by PA. I spoke to a patient regarding choice providers and he has chosen [facility]. I have called and spoken to Brandyn regarding referral.
== END 2020-06-04 14:15 | disposition home or self-care (01) | DRG 871 ==
LOC: EDUNIT# 13:51 → ER 13:53 → 4TH 17:00
PROVIDERS: ADMIT Family Medicine; ATTEND Family Medicine
DX: A41.9 Sepsis, unspecified organism (principal); J18.9 Pneumonia, unspecified organism; J96.01 Acute respiratory failure with hypoxia; Z20.822 Contact with and (suspected) exposure to COVID-19; E78.00 Pure hypercholesterolemia, unspecified; I10 Essential (primary) hypertension; K21.9 Gastro-esophageal reflux disease without esophagitis; F32.9 Major depressive disorder, single episode, unspecified; Z79.01 Long term (current) use of anticoagulants; Z91.041 Radiographic dye allergy status; Z87.891 Personal history of nicotine dependence
CPT/HCPCS: 36415; 71045; 80048; 80053; 82805; 83605; 84145; 85007; 85025; 85027; 85610; 85730; 86141; 87040; 87635; 87804; 94640; 94760; 94761

== ENCOUNTER → 2020-11-22 | Outpatient (CLI) | payer BC ==
[~2020-11-22] MED LIST changes: +ATOR40TA70 PO; +AZIT250T12 PO; +CEPH500T PO; +ESCI20TA39 PO; -ESCI20TA56 PO; +HYDR25TA4 PO; +L.AC1CAP6 PO; +LEVO25CA4 PO; +LOSA100T57 PO; +MULT-1136 PO; -OMEP40CA27 PO; +OMEP40CA6 PO; +OSTEO BIFLEX PO; +PANT40TA52 PO; +SUCR1TAB36 PO; +TUME1CAP PO; +UBID30CA13 PO; +[UNRECOGNIZED DRUG - OTHER] PO
--- NOTE | 2020-11-22 16:17 | Diagnostic Imaging Report ---
INDICATION: Tailbone injury from a fall Sacrum and coccyx AP and lateral views of the sacrum and coccyx does not show any displaced fracture. IMPRESSION: Unremarkable sacrum and coccyx. Dictated by: Dictated on workstation # [id number]
== END ==
LOC: RAD 15:32
PROVIDERS: ATTEND Internal Medicine
DX: S31.813A Puncture wound without foreign body of right buttock, initial encounter (principal); W19.XXXA Unspecified fall, initial encounter
CPT/HCPCS: 72220

== ENCOUNTER 2020-11-24 10:05 | Day surgery (SDC) | payer BC ==
[2020-11-24] VITALS (10 sets, daily range): BP systolic 100–126; BP diastolic 54–77
[~2020-11-24] VITALS: Ht 180 cm; Wt 107.7 kg
[~2020-11-24 10:05] MED LIST changes: -ATOR40TA70 PO; -HYDR25TA4 PO; -L.AC1CAP6 PO; -LEVO25CA4 PO; -TUME1CAP PO
[2020-11-24] MEDS ORDERED: ceFAZolin 2 GM IV Premixed 50 ML IV ONE (10:45)
[2020-11-24 10:47] LABS: BASOPHILS % (AUTO) 1 % (0-10); EOSINOPHILS # (AUTO) 0.1 10^3/uL (0.0-0.3); EOSINOPHILS % (AUTO) 1 % (0-10); HEMATOCRIT 36 % (40-54); HEMOGLOBIN 12.6 g/dL (13.3-17.7); LYMPHOCYTES % (AUTO) 12 % (12-44); MEAN CORPUSCULAR HEMOGLOBIN 32 pg (25-34); MEAN CORPUSCULAR HGB CONC 35 g/dL (32-36); MEAN CORPUSCULAR VOLUME 93 fL (80-99); MEAN PLATELET VOLUME 9.2 fL (9.0-12.2); MONOCYTES # (AUTO) 0.6 10^3/uL (0.0-1.0); MONOCYTES % (AUTO) 7 % (0-12); NEUTROPHILS # (AUTO) 6.3 10^3/uL (1.8-7.8); NEUTROPHILS % (AUTO) 79 % (42-75); PLATELET COUNT 306 10^3/uL (130-400); WHITE BLOOD COUNT 7.9 10^3/uL (4.3-11.0)
[2020-11-24 10:57] LABS: INR 4.8 (0.8-1.4); PROTHROMBIN TIME PATIENT 44.9 SEC (12.2-14.7)
[2020-11-24] MEDS ORDERED: ATOR40TA70 PO (11:07)
[2020-11-24] MEDS ORDERED: LEVO25CA4 PO (11:07)
[2020-11-24] MEDS ORDERED: L.AC1CAP6 PO (11:07)
[2020-11-24] MEDS ORDERED: TUME1CAP PO (11:07)
[2020-11-24] MEDS ORDERED: HYDR25TA4 PO (11:07)
--- NOTE | 2020-11-24 11:11 | Progress Note-Pre Operative ---
Pre-Operative Progress Note H&P Reviewed The H&P was reviewed, patient examined and no changes noted. Date Seen by Provider: Nov 24, 2020 Time Seen by Provider: 11:00 Date H&P Reviewed: Nov 24, 2020 Time H&P Reviewed: 11:00 Pre-Operative Diagnosis: sx large right buttock hematoma YVETTE CAUSEY MD Nov 24, 2020 11:11
[2020-11-24] MEDS: LACTATED RINGERS 1,000 ML IV PRN ×2 (11:13→14:00)
--- NOTE | 2020-11-24 11:13 | Discharge Inst-Surgical ---
D/C Lap Instructions-PADILLA Follow Up Appt in 2 weeks Activity as tolerated No driving for 24 hours No driving while on pain medications Incentive Spirometry use every 2 hours while awake Regular Diet Symptoms to Report: Fever over 101 degree F, Nausea/Vomiting Infection Signs and Symptoms to report: Increased redness, Foul odor of wound, Increased drainage Bathing instructions: May shower Operative Area Clean/Dry; Keep incision clean/dry If any problems/questions: Contact your physician or go to Emergency Room YVETTE CAUSEY MD Nov 24, 2020 11:13
[2020-11-24] MEDS ORDERED: oxyCODONE/APAP 5/325MG (PERCOCET 5) TABLET PO PRN (11:15)
[2020-11-24] MEDS ORDERED: ONDANSETRON 4 MG/2 ML (SDV) Z0FRAN IVP PRN ×2 (11:15→15:00)
[2020-11-24] MEDS ORDERED: morphine INJ 10 MG/ML 1ML (SYR OR VIAL) IVP PRN ×2 (11:15)
[2020-11-24] MEDS ORDERED: ACETAMINOPHEN 325 MG TABLET PO PRN (11:15)
[2020-11-24] MEDS ORDERED: ONDANSETRON 4 MG/2 ML (SDV) Z0FRAN ONE (12:26)
[2020-11-24] MEDS ORDERED: ROCURONIUM 10 MG/ML 5 ML SYRINGE IV ONE (12:26)
[2020-11-24] MEDS ORDERED: proPOfol 200 MG/20 ML (DIPRIVAN) VIAL IV ONE ×2 (12:26→14:39)
[2020-11-24] MEDS ORDERED: MIDAZOLAM 2 MG/2 ML (VERSED) VIAL ONE (12:26)
[2020-11-24] MEDS ORDERED: SEVOFLURANE (ULTANE) 15 ML INHAL SOLN ONE (12:26)
[2020-11-24] MEDS ORDERED: LIDOCAINE PF 2% 5 ML (XYLOCAINE) VIAL ONE (12:26)
[2020-11-24] MEDS ORDERED: fentaNYL INJ 100 MCG/2 ML AMP ONE (12:26)
[2020-11-24] MEDS ORDERED: LIDOCAINE/EPI 1%-1:100,000 (XYLOCAINE) 20ML ONE (13:37)
--- NOTE | 2020-11-24 14:39 | Progress Note-Post Operative ---
Post-Operative Progess Note Surgeon (s)/Cryptographer (s) Surgeon YVETTE CAUSEY MD Cryptographer: none Pre-Operative Diagnosis sx large right buttock hematoma Post-Operative Diagnosis same, subcutaneous and submuscular Procedure & Operative Findings Date of Procedure 11/24/20 Procedure Performed/Findings incision and evacuation large subcutaneous and submuscular bilateral buttock hematoma([id number]) Anesthesia Type GET with local Estimated Blood Loss Estimated blood loss (mL): minimal Specimens/Packing Specimens Removed none YVETTE CAUSEY MD Nov 24, 2020 14:39
[2020-11-24] MEDS ORDERED: GLYCOPYRROLATE 0.2 MG/ML (ROBINUL) 2 ML VIAL ONE (14:40)
[2020-11-24] MEDS ORDERED: NEOSTIGMINE 3 MG/3 ML VIAL ONE (14:40)
--- NOTE | 2020-11-24 14:55 | Anesthesia-General Post-Op ---
MAC Patient Condition Mental Status/LOC: Same as Preop Cardiovascular: Satisfactory Nausea/Vomiting: Absent Respiratory: Satisfactory Pain: Controlled Complications: Absent Post Op Complications Complications None Follow Up Care/Instructions Patient Instructions None needed. Anesthesiology Discharge Order Discharge Order Patient is doing well, no complaints, stable vital signs, no apparent adverse anesthesia problems. No complications reported per nursing. SOL GONZALEZ CRNA Nov 24, 2020 14:55
[2020-11-24] MEDS ORDERED: morphine INJ 10 MG/ML 1ML (SYR OR VIAL) IVP ONE (15:00)
[2020-11-24] MEDS ORDERED: HYDROmorphone 2 MG/ML VIAL (DILAUDID) IV ONE (15:00)
--- NOTE | 2020-11-24 17:14 | OPERATIVE REPORT ---
DATE OF SERVICE: 11/24/2020 ATTENDING PRIMARY CARE PHYSICIAN: Dr. Bronson Madrigal. PREOPERATIVE DIAGNOSIS: Symptomatic large bilateral buttock hematoma. POSTOPERATIVE DIAGNOSIS: Symptomatic large bilateral buttock hematoma with the area approximately 10 x 10 cm in size, which was subcutaneous as well as submuscular. PROCEDURE: Incision and evacuation of bilateral buttock, subcutaneous and submuscular hematoma 10 cm x 10 cm in size. SURGEON: Yvette Causey MD. ANESTHESIA: General with local. ESTIMATED BLOOD LOSS: Minimal. FINDINGS: Large liquified as well as clotted hematoma in the subcutaneous tissue as well as submuscular of the superior buttock. DISPOSITION: The patient tolerated the procedure well. INDICATIONS: The patient is a 60-year-old male known to us. He fell at home while carrying materials from his garage and fell on a landing which was cement on his buttock. He developed bruising and this eventually cause swelling and significant amount of pain and this worsened over time. He is on Coumadin for mechanical heart valve. He was seen in the office and found to have a significant size hematoma, which was tender to palpation. DESCRIPTION OF PROCEDURE: The patient was brought to the operating room, laid supine on the table. After adequate IV pain and sedative medications and general endotracheal intubation, the patient was placed in left lateral decubitus position. The patient was then placed in left lateral decubitus position and the buttock and perineu were prepped and draped in standard surgical fashion. A 0.5% Marcaine with epinephrine was injected at the overlying skin along the right medial buttock. A vertical skin incision was made using a 15 blade. There was a large subcutaneous hematoma; however, there was also submuscular hematoma identified as well after blunt dissection and this was in the region of the right medial buttock; however, extended through to the left buttock. The hematoma was then meticulously evacuated using a Yankauer suction and any loculations were broken up using blunt dissection. Good hemostasis was observed, and the entire hematoma cavity was then packed with a Kerlix wrap soaked in saline. This was then covered by 4 x 4 gauze followed by ABD pad followed by mesh shorts. The patient tolerated the procedure well. We will start IV normal pain medication as well as a clear liquid diet. Once he is tolerating clears, has good pain control with oral pain medications, ambulating well, we will discharge him home. He was instructed to remove the packing in 24 hours and then just to loosely pack the opening to stent it open and allow for continued drainage for the next several days. He also will be instructed to allow the wound to close by secondary intention. Job ID: [id number] DocumentID: [id number] Dictated Date: 11/24/2020 14:44:56 Quality Assurance Project Manager Date: 11/24/2020 17:13:21 Dictated By: YVETTE CAUSEY MD MTDD
== END 2020-11-24 16:45 ==
LOC: SDC 10:05
PROVIDERS: ATTEND Surgery
DX: S30.0XXA Contusion of lower back and pelvis, initial encounter (principal); I10 Essential (primary) hypertension; G47.33 Obstructive sleep apnea (adult) (pediatric); E66.9 Obesity, unspecified; F32.9 Major depressive disorder, single episode, unspecified; E78.00 Pure hypercholesterolemia, unspecified; E03.9 Hypothyroidism, unspecified; K21.9 Gastro-esophageal reflux disease without esophagitis; W19.XXXA Unspecified fall, initial encounter; Y92.008 Other place in unspecified non-institutional (private) residence as the place of occurrence of the external cause; Z79.2 Long term (current) use of antibiotics; Z79.01 Long term (current) use of anticoagulants; Z79.899 Other long term (current) drug therapy; Z79.890 Hormone replacement therapy; Z68.33 Body mass index [BMI] 33.0-33.9, adult
CPT/HCPCS: 36415; 85025; 85610; 85730; 87081

== ENCOUNTER 2020-11-25 21:25 | Inpatient (IN) | payer BC ==
[~2020-11-25] VITALS: Ht 190.5 cm; Wt 111.3 kg
[~2020-11-25 21:25] MED LIST changes: +ATOR40TA70 PO; +HYDR25TA4 PO; +L.AC1CAP6 PO; +LEVO25CA4 PO; +TUME1CAP PO
[2020-11-25] MEDS ORDERED: ONDANSETRON 4 MG/2 ML (SDV) Z0FRAN IVP ONE (21:45)
[2020-11-25] MEDS ORDERED: NS IV 500 ML 500 ML IV SCH (21:45)
[2020-11-25 21:53] LABS: BASOPHILS % (AUTO) 0 % (0-10); EOSINOPHILS % (AUTO) 0 % (0-10); HEMATOCRIT 21 % (40-54); HEMOGLOBIN 7.4 g/dL (13.3-17.7); LYMPHOCYTES # (AUTO) 1.1 10^3/uL (1.0-4.0); LYMPHOCYTES % (AUTO) 10 % (12-44); MEAN CORPUSCULAR HEMOGLOBIN 33 pg (25-34); MEAN CORPUSCULAR HGB CONC 35 g/dL (32-36); MEAN CORPUSCULAR VOLUME 95 fL (80-99); MONOCYTES % (AUTO) 9 % (0-12); NEUTROPHILS # (AUTO) 9.7 10^3/uL (1.8-7.8); NEUTROPHILS % (AUTO) 81 % (42-75); PLATELET COUNT 290 10^3/uL (130-400)
[2020-11-25 21:58] LABS: INR 4.3 (0.8-1.4); PROTHROMBIN TIME PATIENT 41.6 SEC (12.2-14.7)
[2020-11-25 22:00] LABS: POTASSIUM 2.9 MMOL/L (3.6-5.0)
[2020-11-25 22:01] LABS: CALCIUM 7.8 MG/DL (8.5-10.1)
[2020-11-25 22:02] LABS: TOTAL PROTEIN 5.2 GM/DL (6.4-8.2)
[2020-11-25 22:04] LABS: BILIRUBIN,TOTAL 1.6 MG/DL (0.1-1.0)
[2020-11-25 22:06] LABS: CREATININE SERUM 1.1 MG/DL (0.60-1.30)
[2020-11-25] MEDS ORDERED: fentaNYL INJ 100 MCG/2 ML AMP IVP ONE (22:30)
[2020-11-25] MEDS ORDERED: POTASSIUM CL 10MEQ/50ML IVPB 50 ML IV ONE (22:30)
[2020-11-25] MEDS ORDERED: ceFAZolin 2 GM IV Premixed 50 ML IV ONE (22:30)
[2020-11-25] MEDS ORDERED: NS IV 500 ML 500 ML ONE (22:42)
[2020-11-25] MEDS ORDERED: NS IV 500 ML 500 ML IV ONE (23:00)
--- NOTE | 2020-11-25 23:01 | ED General ---
General Chief Complaint: Post OP Complications/Pain Stated Complaint: SKIN WOUND History of Present Illness Date Seen by Provider: Nov 25, 2020 Time Seen by Provider: 21:30 Initial Comments This 60-year-old gentleman presents to the emergency room via EMS with bleeding from a surgical wound over the sacral region. He had surgery to evacuate bilateral buttock hematomas yesterday by Dr. Mesa. He has been supratherapeutic with his INR greater than 4. He takes warfarin due to a mechanical heart valve. His notes she removed packing tonight as instructed by Dr. Mesa. Patient had profuse bleeding through the evening and is becoming pale. EMS notes he is hypertensive with a systolic blood pressure in the 80s. IV fluids were initiated. Patient is alert but appears confused. He is in distress from pain at the surgical site. Allergies and Home Medications Allergies Coded Allergies: Iodinated Contrast Media (Verified Allergy, Unknown, 10/24/17) Home Medications Amlodipine Besylate 10 Mg Tablet, 10 MG PO HS, (Reported) Atorvastatin Calcium 40 Mg Tablet, 40 MG PO DAILY, (Reported) Escitalopram Oxalate 20 Mg Tablet, 40 MG PO HS, (Reported) TAKES 2 (20MG) TABS Hydrochlorothiazide 25 Mg Tablet, 25 MG PO DAILY, (Reported) L.acidoph & Paracasei,B.lactis 1 Each Capsule, 2 EACH PO DAILY, (Reported) Levothyroxine Sodium 25 Mcg Capsule, 25 MCG PO DAILY, (Reported) Losartan Potassium 100 Mg Tablet, 100 MG PO HS, (Reported) Multivitamin 1 Each Tablet, 1 EACH PO DAILY, (Reported) Omeprazole 40 Mg Capsule.dr, 40 MG PO HS, (Reported) Pantoprazole Sodium 40 Mg Tablet.dr, 40 MG PO HS, (Reported) Tumeric/Ging/Pennington/Oreg/Capryl 1 Each Capsule, 1 EACH PO DAILY, (Reported) Ubidecarenone 30 Mg Capsule, 30 MG PO HS, (Reported) Warfarin Sodium 2.5 Mg Tablet, 2.5 MG PO HS, (Reported) [Osteo Biflex W/Turme] TAB, 1 EA PO HS, (Reported) Patient Home Medication List Home Medication List Reviewed: Yes Review of Systems Review of Systems Constitutional: diaphoresis EENTM: no symptoms reported Respiratory: no symptoms reported Cardiovascular: see HPI Gastrointestinal: no symptoms reported Genitourinary: no symptoms reported Musculoskeletal: see HPI Skin: see HPI Psychiatric/Neurological: See HPI Hematologic/Lymphatic: See HPI Immunological/Allergic: no symptoms reported Past Rjogaxy-Eguojh-Ugebce Hx Seasonal Allergies Seasonal Allergies: Yes Past Medical History Surgeries: Yes (Buttock hematoma evacuation) Appendectomy, Cardiac, Open Heart Surgery, Valve Replacement (Mechanical) Respiratory: Yes Sleep Apnea Currently Using CPAP: No Currently Using BIPAP: No Cardiac: Yes (AORTIC VALVE REPLACEMENT 2007) High Cholesterol, Hypertension, Valvular Heart Disease Neurological: No Vertigo Reproductive Disorders: No Sexually Transmitted Disease: No HIV/AIDS: No Gastrointestinal: Yes Gastroesophageal Reflux, Chronic Constipation Musculoskeletal: No Endocrine: No HEENT: Yes (GLASSES) Loss of Vision: Bilateral Hearing Impairment: Denies Cancer: No Psychosocial: Yes Depression Integumentary: No Blood Disorders: Yes (Anticoagulated on warfarin) Adverse Reaction/Blood Tranf: No (N/A) Family Medical History No Pertinent Family Hx Physical Exam Vital Signs Vital Signs - First Documented 11/25/20 21:25 Temp 35.2 Pulse 77 Resp 20 B/P (MAP) 85/41 (56) Pulse Ox 99 Capillary Refill : Height, Weight, BMI Height: 5'11.00" Weight: 241lbs. 0.0oz. 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 II- XII Norm as Tested, Other (Anxious, does not always answer questions appropriately.) Skin: Warm/Dry, Diaphoresis, Pallor Focused Exam Lactate Level 11/25/20 22:28: Lactic Acid Level 3.59*H Lactic Acid Level Laboratory Tests Test 11/25/20 22:28 Lactic Acid Level 3.59 MMOL/L (0.50-2.00) *H Progress/Results/Core Measures Suspected Sepsis SIRS Temperature: Pulse: Respiratory Rate: Laboratory Tests 11/25/20 21:35: White Blood Count 12.0H Blood Pressure / Mean: 11/25/20 22:28: Lactic Acid Level 3.59*H Laboratory Tests 11/25/20 21:35: Creatinine 1.10, INR Comment 4.3H, Platelet Count 290, Total Bilirubin 1.6H Results/Orders Lab Results Laboratory Tests Test 11/25/20 21:35 11/25/20 22:28 Range/Units White Blood Count 12.0 H 4.3-11.0 10^3/uL Red Blood Count 2.23 L 4.30-5.52 10^6/uL Hemoglobin 7.4 #L 13.3-17.7 g/dL Hematocrit 21 L 40-54 % Mean Corpuscular Volume 95 80-99 fL Mean Corpuscular Hemoglobin 33 25-34 pg Mean Corpuscular Hemoglobin Concent 35 32-36 g/dL Red Cell Distribution Width 13.7 10.0-14.5 % Platelet Count 290 130-400 10^3/uL Mean Platelet Volume 9.0 9.0-12.2 fL Immature Granulocyte % (Auto) 1 % Neutrophils (%) (Auto) 81 H 42-75 % Lymphocytes (%) (Auto) 10 L 12-44 % Monocytes (%) (Auto) 9 0-12 % Eosinophils (%) (Auto) 0 0-10 % Basophils (%) (Auto) 0 0-10 % Neutrophils # (Auto) 9.7 H 1.8-7.8 10^3/uL Lymphocytes # (Auto) 1.1 1.0-4.0 10^3/uL Monocytes # (Auto) 1.0 0.0-1.0 10^3/uL Eosinophils # (Auto) 0.0 0.0-0.3 10^3/uL Basophils # (Auto) 0.0 0.0-0.1 10^3/uL Immature Granulocyte # (Auto) 0.1 0.0-0.1 10^3/uL Prothrombin Time 41.6 H 12.2-14.7 SEC INR Comment 4.3 H 0.8-1.4 Sodium Level 133 L 135-145 MMOL/L Potassium Level 2.9 L 3.6-5.0 MMOL/L Chloride Level 93 L 98-107 MMOL/L Carbon Dioxide Level 24 21-32 MMOL/L Anion Gap 16 H 5-14 MMOL/L Blood Urea Nitrogen 12 7-18 MG/DL Creatinine 1.10 0.60-1.30 MG/DL Estimat Glomerular Filtration Rate 68 BUN/Creatinine Ratio 11 Glucose Level 248 H 70-105 MG/DL Calcium Level 7.8 L 8.5-10.1 MG/DL Corrected Calcium 8.6 8.5-10.1 MG/DL Total Bilirubin 1.6 H 0.1-1.0 MG/DL Aspartate Amino Transf (AST/SGOT) 20 5-34 U/L Alanine Aminotransferase (ALT/SGPT) 15 0-55 U/L Alkaline Phosphatase 52 40-136 U/L C-Reactive Protein High Sensitivity 12.36 H 0.00-0.50 MG/DL Total Protein 5.2 L 6.4-8.2 GM/DL Albumin 3.0 L 3.2-4.5 GM/DL Lactic Acid Level 3.59 *H 0.50-2.00 MMOL/L My Orders Orders - COREEN KAYE MD Ondansetron Injection (Zofran Injectio (11/25/20 21:45) Fresh Frozen Plasma (11/25/20 21:43) Ns Iv 500 Ml (Sodium Chloride 0.9%) (11/25/20 21:45) Blood Culture (11/25/20 22:13) Urinalysis (11/25/20 22:13) Urine Culture (11/25/20 22:13) Chest 1 View, Ap/Pa Only (11/25/20 22:13) Ed Iv/Invasive Line Start (11/25/20 22:13) Vital Signs Adult Sepsis Patie Q15M (11/25/20 22:13) Remove Rings In Anticipation O (11/25/20 22:13) Lactic Acid Analyzer (11/25/20 22:13) Potassium Cl 10meq/50ml Ivpb (Kcl 10 Meq (11/25/20 22:30) Cefazolin 2 Gm Iv Premixed (Ancef 2 Gm P (11/25/20 22:30) Fentanyl Inj (Sublimaze Injection) (11/25/20 22:30) Ns Iv 500 Ml (Sodium Chloride 0.9%) (11/25/20 22:42) Ns Iv 500 Ml (Sodium Chloride 0.9%) (11/25/20 23:00) Medications Given in ED Current Medications Medications Dose Ordered Sig/Opal Route Start Time Stop Time Status Last Admin Dose Admin Cefazolin Sodium/ Dextrose 50 ml @ 100 mls/hr ONCE ONCE IV 11/25/20 22:30 11/25/20 22:59 DC 11/25/20 22:57 100 MLS/HR Fentanyl Citrate 50 mcg ONCE ONCE IVP 11/25/20 22:30 11/25/20 22:31 DC 11/25/20 22:39 50 MCG Ondansetron HCl 8 mg ONCE ONCE IVP 11/25/20 21:45 11/25/20 21:46 DC 11/25/20 21:58 8 MG Potassium Chloride 50 ml @ 50 mls/hr ONCE ONCE IV 11/25/20 22:30 11/25/20 23:29 DC 11/25/20 22:35 50 MLS/HR Vital Signs/I&O 11/25/20 21:25 Temp 35.2 Pulse 77 Resp 20 B/P (MAP) 85/41 (56) Pulse Ox 99 11/26/20 00:00 Intake Total 1500 ml Balance 1500 ml Capillary Refill : Progress Note #1: Time: 22:57 Progress Note Hypertension was immediately addressed with IV fluids. He received 1 L as started by EMS. A 500 mL additional normal saline bolus was administered in the ER totaling 1500 mL in boluses. This resuscitated blood pressure to the 110s systolic. Fentanyl 50 mcg was given for pain after blood pressure improved. The dressing over the wound was intact with no blood coming through or around to the dressing. The dressing was left as is to avoid initiating further bleeding. He had a significant drop in hemoglobin indicating severe acute blood loss anemia. 2 units of packed red blood cells were ordered to give along with 1 unit of FFP. Management of his INR will be delicate due to need for antic oagulation with the artificial heart valve. Since he is supratherapeutic, we will start with 1 unit of FFP and then reevaluate his INR. Plan was communicated with Dr. Mesa, Dr. Dowling, patient, and his . Patient will be admitted to the ICU. He elects full CODE STATUS. I have consulted Dr. Hopper with the eICU as well. I discussed antibiotic therapy with Dr. Mesa as his WBC and CRP are both elevated. Dr. Mesa recommended a dose of Ancef be given tonight. Patient was also found to be hypokalemic. Replacement is being started with 10 mEq by IV route in the ER. Progress Note #2: Time: 00:57 Progress Note While awaiting transfer to the ICU, his wound began to bleed profusely. Anticipation of aggressive packing and or sewing, he was being anesthetized with lidocaine with epinephrine. During that attempt the hematoma ruptured expelling a large amount of blood. The wound/cavity was sprayed with tranexamic acid and packed with 2 sheets of Surgicel. It continued to bleed profusely despite Surgicel and pressure. 3 large [id number] sutures were placed over the wound. A roll of Kerlix was placed over the sutured wound and a sandbag applied over the top. This seemed to control the bleeding. The first unit of PRBC and the FFP were started around the same time and were infusing as patient was being transferred to the ICU. Diagnostic Imaging Diagonstic Imaging: Xray Plain Films/CT/US/NM/MRI: chest Comments NAME: PASTORA ZARATE [facility] REC#: [id number] PT STATUS: ADM IN : 1960 PHYSICIAN: COREEN KAYE MD ADMIT DATE: 11/25/20/ICU Draft Date of Exam:11/25/20 CHEST 1 VIEW, AP/PA ONLY INDICATION: Leukocytosis Portable chest 10:25 PM There are postoperative changes from valve repair surgery. Heart size and pulmonary vascularity are normal. Lungs are clear. There are no effusions or pneumothoraces. IMPRESSION: No acute abnormalities in the chest Dictated on workstation # [id number] Dict: 11/26/20 0534 Trans: 11/26/20 0541 JAYCE [id number] Interpreted by: ADRI BRAMBILA MD Departure Communication (Admissions) Time/Spoke to Admitting Phy: 22:20 Dr. Mesa Time/Spoke to Consulting Phy: 22:22 Dr. Dowling Impression Primary Impression: Acute blood loss anemia Additional Impressions: Supratherapeutic INR Hypokalemia Disposition: ADMITTED INPATIENT Condition: Improved Admissions Decision to Admit Reason: Admit from ER (General) Decision to Admit/Date: Nov 25, 2020 Time/Decision to Admit Time: 21:30 Departure-Patient Inst. Referrals: AMITA BAUMAN DO (PCP/Family) Primary Care Physician Copy Copies To 2: AMITA BAUMAN JOSHUA T MD Nov 25, 2020 23:01
[2020-11-26] VITALS (21 sets, daily range): BP systolic 106–133; BP diastolic 65–80
[2020-11-26] MEDS ORDERED: TRANEXAMIC ACID 100 MG/ML 10 ML INJECTION IV ONE (00:15)
[2020-11-26] MEDS ORDERED: NS (IVPB) 500 ML ONE (00:18)
[2020-11-26] MEDS ORDERED: ONDANSETRON 4 MG/2 ML (SDV) Z0FRAN IV PRN (01:30)
[2020-11-26] MEDS ORDERED: inSUlin ASPART (NovoLOG) 1 UNIT/0.01 ML (CHARGE PER UNIT) SC SCH (02:15)
--- NOTE | 2020-11-26 02:15 | Tele-ICU Progress Note ---
Progress Note 60M with mech AV on coumadin, HTN, HLD with recent fall resulting in sacral hematoma, ultimately required surgical evacuation yesterday. Today, removed packing and wound bgan to hemmorhage. On EMS eval, BP in 50s, now improved to 110s after 1L IVF in field. Wound was also redressed, currently dressing not saturated so was not taken down for direct visualization for ER MD in order to preserve clotting process. Hg down to 7.4 from 12 yesterday. - Anemia: secondary to acute blood loss. 2u PRBC ordered. - Coagulopathy: INR 4.3. Correcting cautiously given mechanical valve. Goal INR2.5-3 for now. 1 u FFP ordered, will re-eval after. - hypotension: resolved with fluid resuscitation. Will monitor. - wound: surgery consulted. Maintain dressing/pressure so as not to disrupt clot. - DM: ISS Focused Exam Lactate Level 11/25/20 22:28: Lactic Acid Level 3.59*H Height, Weight, BMI Height: 5'11.00" Weight: 241lbs. 0.0oz. 109.206651fc; 30.47 BMI Method:Stated Lactic Acid Level Laboratory Tests Test 11/25/20 22:28 Lactic Acid Level 3.59 MMOL/L (0.50-2.00) *H VICKIE GERARD MD Nov 26, 2020 02:15
[2020-11-26] MEDS ORDERED: NS IV 500 ML 500 ML ONE (05:03)
[2020-11-26] MEDS: POTASSIUM CL 10 MEQ/50 ML IVPB (PRE-MIX) IV SCH ×4 (05:27→09:01)
--- NOTE | 2020-11-26 05:41 | Diagnostic Imaging Report ---
INDICATION: Leukocytosis Portable chest 10:25 PM There are postoperative changes from valve repair surgery. Heart size and pulmonary vascularity are normal. Lungs are clear. There are no effusions or pneumothoraces. IMPRESSION: No acute abnormalities in the chest Dictated by: Dictated on workstation # [id number]
[2020-11-26] MEDS: MAGNESIUM 1 GM/100 ML IVPB 100 ML IV SCH (06:02)
[2020-11-26] MEDS: KCL 20 MEQ TAB (K-DUR) PO SCH (06:02)
[2020-11-26] MEDS: POTASSIUM CL 10MEQ/50ML IVPB 50 ML IV SCH (06:02)
[2020-11-26] MEDS: fentaNYL INJ 100 MCG/2 ML AMP IV PRN ×2 (08:00→18:10)
[2020-11-26] MEDS ORDERED: HYDROmorphone 2 MG/ML VIAL (DILAUDID) IV PRN (10:00)
[2020-11-26] MEDS ORDERED: UBID200C36 PO (10:14)
[2020-11-26] MEDS ORDERED: TEST200V27 IM (10:14)
--- NOTE | 2020-11-26 12:36 | HISTORY AND PHYSICAL ---
DATE OF SERVICE: ATTENDING PRIMARY CARE PHYSICIAN: Dr. Bronson Madrigal. HISTORY OF PRESENT ILLNESS: The patient is a 60-year-old male who was referred over to us in the office for a same level fall. He was carrying objects in his garage and then fell side landing on his right buttock region. He then reports that he developed ecchymosis, swelling and significant pain and was found to have a significant size hematoma. He then underwent incision and evacuation of the hematoma on 11/24/2020. The patient does have artificial mitral valve and is on Coumadin for this. He did well with the procedure. However, the following day, he developed significant bleeding as well as swelling more along the right buttock region. He was instructed to repack the area and to apply pressure; however, this continued to bleed. He was then seen in the Emergency Department where bleeding was identified and Surgicel was placed followed by [id number] sutures along the opening as well as pressure and the bleeding did stop. Upon examination, he does have swelling as well as ecchymosis along the left buttock consistent with a hematoma; however, his INR is supratherapeutic at 4.3 and we will proceed with medical management for now. PAST MEDICAL HISTORY: Hypercholesterolemia, hypertension, gastroesophageal reflux disease, hiatal hernia, pneumonia in 2020, depression, hypothyroid, cardiac valvular disease. PAST SURGICAL HISTORY: Bicuspid aortic valve replacement in 2005, bilateral cataract removal in 2000. ALLERGIES: No known drug allergies. MEDICATIONS: Hydrochlorothiazide 25 mg daily, Protonix 40 mg daily, levothyroxine 25 mcg daily, losartan 100 mg daily, Coumadin 2.5 mg daily, amlodipine 10 mg daily, atorvastatin 40 mg daily, Lexapro 20 mg daily. SOCIAL HISTORY: Negative smoke, negative alcohol. Positive chewing tobacco. VITAL SIGNS: Temperature 37.3, blood pressure 137/91, pulse 82, respirations 22, pulse ox 93% on 3 liters nasal cannula. REVIEW OF SYSTEMS: Well-nourished male currently in no acute distress. He is not experiencing any shortness of breath or difficulty breathing. No chest pain, palpitations, diaphoresis. No nausea, vomiting, no diarrhea or constipation. No fever, chills, no recent inadvertent weight loss. He does have pain along bilateral buttock regions. PHYSICAL EXAMINATION: CHEST: Clear. Good breath sounds bilaterally. HEART: Regular, no murmurs. EXTREMITIES: No lower extremity edema, negative Homans sign. HEENT: No scleral icterus. NECK: No cervical lymphadenopathy. ABDOMEN: Soft, nontender, nondistended. SKIN: Along the bilateral buttock is an ecchymosis as well as mild fluctuance consistent with bilateral buttock hematoma with no signs of active bleeding. LABORATORY DATA: WBC 12.0, hemoglobin 7.4, hematocrit 21, platelets 290. PT 41.6. INR 4.3. ASSESSMENT AND PLAN: A 60-year-old male with supratherapeutic INR with recurrent buttock bleed. Due to his Coumadin and recurrent bleeding and hematoma, we will proceed with conservative medical management for now and continue to monitor his INR and correct to a normal range of 2 to 2.5. We will also proceed with pain control and early ambulation to prevent atelectasis, pneumonia as well as any deep vein thrombosis. Job ID: [id number] DocumentID: [id number] Dictated Date: 11/26/2020 11:50:47 Kennel Staff Member Date: 11/26/2020 12:35:38 Dictated By: YVETTE CAUSEY MD
[2020-11-26 13:05] LABS: BASOPHILS % (AUTO) 0 % (0-10); EOSINOPHILS % (AUTO) 0 % (0-10); HEMATOCRIT 22 % (40-54); HEMOGLOBIN 7.7 g/dL (13.3-17.7); LYMPHOCYTES # (AUTO) 1.1 10^3/uL (1.0-4.0); LYMPHOCYTES % (AUTO) 12 % (12-44); MEAN CORPUSCULAR HEMOGLOBIN 32 pg (25-34); MEAN CORPUSCULAR HGB CONC 36 g/dL (32-36); MEAN CORPUSCULAR VOLUME 90 fL (80-99); MEAN PLATELET VOLUME 8.8 fL (9.0-12.2); MONOCYTES % (AUTO) 10 % (0-12); NEUTROPHILS # (AUTO) 7.5 10^3/uL (1.8-7.8); NEUTROPHILS % (AUTO) 78 % (42-75); PLATELET COUNT 221 10^3/uL (130-400); WHITE BLOOD COUNT 9.7 10^3/uL (4.3-11.0)
[2020-11-26 13:19] LABS: POTASSIUM 3.3 MMOL/L (3.6-5.0)
[2020-11-26 13:20] LABS: CALCIUM 7.6 MG/DL (8.5-10.1)
[2020-11-26 13:24] LABS: INR 2.3 (0.8-1.4); PHOSPHORUS 2.3 MG/DL (2.3-4.7); PROTHROMBIN TIME PATIENT 25.5 SEC (12.2-14.7)
[2020-11-26 13:25] LABS: CREATININE SERUM 0.69 MG/DL (0.60-1.30)
[2020-11-26 13:27] LABS: MAGNESIUM 1.7 MG/DL (1.6-2.4)
--- NOTE | 2020-11-26 17:39 | Consultation - Hospitalist ---
HPI History of Present Illness: HPI/Chief Complaint Kike Martinez is a 60-year-old male with past medical history of mechanical mitral valve on Coumadin, alcohol abuse, who presented with bleeding. He recently fell and then developed a hematoma on his buttocks. He underwent evacuation of the hematoma with Dr. Mesa. He was at home and his was attempting to change the packing and he developed profuse bleeding and brought him to the emergency room. The bleeding was very difficult to control in the emergency room. He was given a unit of FFP and transfused 2 units of PRBC. He was admitted to Dr. Mesa we have been consulted for medical comanagement. Upon my examination, he has no complaints. He was feeling lightheaded and dizzy when he came in but this is resolved. He denies any chest pain or shortness of breath. He says he has been drinking quite a bit of alcohol recently, but does not quantify. Source: patient Exam Limitations: no limitations Date Seen 11/26/20 Attending Physician Bladimir Mesa MD PCP Bronson Madrigal DO Referring Physician Date of Admission Nov 25, 2020 at 22:56 Home Medications & Allergies Home Medications Reviewed patient Home Medication Reconciliation performed by pharmacy medication reconciliations accounting technician and/or nursing. Patients Allergies have been reviewed. Allergies Allergies Coded Allergies Iodinated Contrast Media (Verified Allergy, Unknown, 10/24/17) Past Echgkrd-Uaftzp-Yufyuf Hx Patient Social History Tobacco Use?: No Tobacco type used: Cigarettes Smoking Status: Former Smoker Smokeless type used: Chew Smokeless Tobacco Frequency: Current Everyday User Use of E-Cig and/or Vaping dev: No Substance use?: No Alcohol Use?: Yes Alcohol type: Beer Alcohol Frequency: Daily Additional Alcohol Comments: DAILY FOR LAST MONTH, OCCASIONALY BEFORE THEN Pt feels they are or have been: No Immunizations Up To Date Date of Influenza Vaccine: Jun 01, 2020 Tetanus Booster (TDap): Less Than 5 Years Hepatitis A: No Hepatitis B: No Seasonal Allergies Seasonal Allergies: Yes Current Status Advance Directives: No Communicates: Verbally Primary Language: Icelandic Preferred Spoken Language: Icelandic Is interpretation needed?: No Sensory deficits: Vision impairment Implanted or Applied Medical D: CPAP Past Medical History Surgeries: Appendectomy, Cardiac, Open Heart Surgery, Valve Replacement (Mechanical) Sleep Apnea Currently Using CPAP: No Currently Using BIPAP: No High Cholesterol, Hypertension, Valvular Heart Disease Vertigo Sexually Transmitted Disease: No HIV/AIDS: No Gastroesophageal Reflux, Chronic Constipation Loss of Vision: Bilateral Hearing Impairment: Denies Depression Blood Disorders: Yes (Anticoagulated on warfarin) Adverse Reaction/Blood Tranf: No (N/A) Family Medical History No Pertinent Family Hx Review of Systems Constitutional: dizziness EENTM: no symptoms reported Respiratory: no symptoms reported Cardiovascular: no symptoms reported Gastrointestinal: no symptoms reported Genitourinary: no symptoms reported Musculoskeletal: no symptoms reported Skin: no symptoms reported Psychiatric/Neurological: No Symptoms Reported Physical Exam Physical Exam Vital Signs Vital Signs - First Documented 11/25/20 11/25/20 21:25 23:28 Temp 35.2 Pulse 77 Resp 20 B/P (MAP) 85/41 (56) Pulse Ox 99 O2 Delivery Nasal Cannula O2 Flow Rate 2.00 Capillary Refill : Less Than 3 Seconds Height, Weight, BMI Height: 5'11.00" Weight: 241lbs. 0.0oz. [id number]; 30.47 BMI Method:Stated General Appearance: No Apparent Distress, WD/WN HEENT: PERRL/EOMI, Pharynx Normal Neck: Normal Inspection, Supple Respiratory: Lungs Clear, Normal Breath Sounds, No Respiratory Distress Cardiovascular: Regular Rate, Rhythm, No Edema, No Murmur Gastrointestinal: Normal Bowel Sounds, Non Tender, Soft Extremity: Normal Inspection, No Pedal Edema Neurologic/Psychiatric: Alert, Oriented x3, No Motor/Sensory Deficits, Depressed Affect Skin: Ecchymosis (Back and buttocks, incision with packing and dressing in place.) Results Results/Procedures Labs Laboratory Tests 11/25/20 21:35 11/26/20 12:52 Patient resulted labs reviewed. Imaging: Reviewed Imaging Report Assessment/Plan Assessment and Plan Assess & Plan/Chief Complaint Acute blood loss anemia Traumatic hematoma buttock Lactic acidosis Mechanical heart valve Supratherapeutic INR Surgery primary, Dr. Mesa s/p 2 units PRBC Hemoglobin 7.7, monitor closely INR 4.3 on arrival, now 2.3 s/p 1 unit FFP Consult cardiology Diagnosis/Problems Diagnosis/Problems (1) Acute blood loss anemia Status: Acute (2) Traumatic hematoma of buttock Status: Acute Qualifiers: Encounter type: subsequent encounter Qualified Codes: S30.0XXD - Contusion of lower back and pelvis, subsequent encounter (3) Lactic acidosis Status: Acute (4) Supratherapeutic INR Status: Acute (5) Mechanical heart valve present Status: Chronic TEREZA ZULUAGA MD Nov 26, 2020 17:39
[2020-11-26] MEDS: oxyCODONE/APAP 10/325MG (PERCOCET 10) TABLET PO PRN (20:20)
[2020-11-26] MEDS: DOCUSATE SODIUM 100 MG (COLACE) CAP PO SCH (20:20)
[2020-11-27 04:17] LABS: POTASSIUM 3.1 MMOL/L (3.6-5.0)
[2020-11-27 04:19] LABS: INR 2.1 (0.8-1.4); PROTHROMBIN TIME PATIENT 24.3 SEC (12.2-14.7)
[2020-11-27 04:20] LABS: BASOPHILS % (AUTO) 1 % (0-10); EOSINOPHILS # (AUTO) 0.1 10^3/uL (0.0-0.3); EOSINOPHILS % (AUTO) 1 % (0-10); HEMATOCRIT 21 % (40-54); HEMOGLOBIN 7.1 g/dL (13.3-17.7); LYMPHOCYTES # (AUTO) 1.4 10^3/uL (1.0-4.0); LYMPHOCYTES % (AUTO) 21 % (12-44); MEAN CORPUSCULAR HEMOGLOBIN 32 pg (25-34); MEAN CORPUSCULAR HGB CONC 34 g/dL (32-36); MEAN CORPUSCULAR VOLUME 93 fL (80-99); MONOCYTES # (AUTO) 0.7 10^3/uL (0.0-1.0); MONOCYTES % (AUTO) 11 % (0-12); NEUTROPHILS # (AUTO) 4.3 10^3/uL (1.8-7.8); NEUTROPHILS % (AUTO) 66 % (42-75); PLATELET COUNT 245 10^3/uL (130-400); WHITE BLOOD COUNT 6.6 10^3/uL (4.3-11.0)
[2020-11-27 04:23] LABS: CREATININE SERUM 0.68 MG/DL (0.60-1.30); PHOSPHORUS 2.6 MG/DL (2.3-4.7)
[2020-11-27] MEDS: MAGNESIUM 1 GM/100 ML IVPB 100 ML IV SCH (04:45)
[2020-11-27] MEDS: POTASSIUM CL 10MEQ/50ML IVPB 50 ML IV SCH (04:45)
[2020-11-27] MEDS: KCL 20 MEQ TAB (K-DUR) PO SCH (05:09)
[2020-11-27] MEDS ORDERED: KCL 20 MEQ TAB (K-DUR) PO ONE ×2 (06:00→08:00)
--- NOTE | 2020-11-27 08:44 | Progress Note - Hospitalist ---
Subjective HPI/CC On Admission Date Seen by Provider: Nov 27, 2020 Time Seen by Provider: 07:05 Kike Martinez is a 60-year-old male with past medical history of mechanical mitral valve on Coumadin, alcohol abuse, who presented with bleeding. He recently fell and then developed a hematoma on his buttocks. He underwent evacuation of the hematoma with Dr. Mesa. He was at home and his was attempting to change the packing and he developed profuse bleeding and brought him to the emergency room. The bleeding was very difficult to control in the emergency room. He was given a unit of FFP and transfused 2 units of PRBC. He was admitted to Dr. Mesa we have been consulted for medical comanagement. Upon my examination, he has no complaints. He was feeling lightheaded and dizzy when he came in but this is resolved. He denies any chest pain or shortness of breath. He says he has been drinking quite a bit of alcohol recently, but does not quantify. Subjective/Events-last exam He has not noticed any more bleeding. He says that his buttocks hurt. He wants to go home. Focused Exam Lactate Level 11/25/20 12:52: Lactic Acid Level 1.34 11/25/20 22:28: Lactic Acid Level 3.59*H Objective Exam Vital Signs Vital Signs Date Time Temp Pulse Resp B/P (MAP) Pulse Ox O2 Delivery O2 Flow Rate FiO2 11/27/20 08:22 37.0 73 24 143/74 (97) 95 Room Air 11/26/20 16:00 3.00 Capillary Refill : Less Than 3 Seconds General Appearance: Mild Distress (Uncomfortable), Obese, Other (Unkempt) Respiratory: Lungs Clear, Normal Breath Sounds, No Respiratory Distress Cardiovascular: Regular Rate, Rhythm, No Edema, No Murmur Gastrointestinal: Normal Bowel Sounds, Non Tender, Soft Extremity: Normal Inspection, Non Tender, No Pedal Edema Neurologic/Psychiatric: Alert, Oriented x3, Depressed Affect Skin: Other (Buttocks wound with dressings in place) Results/Procedures Lab Laboratory Tests 11/26/20 12:52 11/27/20 03:38 Patient resulted labs reviewed. Imaging: Reviewed Imaging Report Assessment/Plan Assessment and Plan Assess & Plan/Chief Complaint Acute blood loss anemia Traumatic hematoma buttock Mechanical heart valve Surgery primary, Dr. Mesa s/p 2 units PRBC Hemoglobin 7.1, slightly decreased from yesterday INR 4.3 on arrival, now 2.1 s/p 1 unit FFP Cardiology consulted, appreciate assistance Lactic acidosis, resolved Supratherapeutic INR, resolved Diagnosis/Problems Diagnosis/Problems (1) Acute blood loss anemia Status: Acute (2) Traumatic hematoma of buttock Status: Acute Qualifiers: Encounter type: subsequent encounter Qualified Codes: S30.0XXD - Contusion of lower back and pelvis, subsequent encounter (3) Lactic acidosis Status: Acute (4) Supratherapeutic INR Status: Acute (5) Mechanical heart valve present Status: Chronic TEREZA ZULUAGA MD Nov 27, 2020 08:44
[2020-11-27] MEDS: DOCUSATE SODIUM 100 MG (COLACE) CAP PO SCH ×2 (08:48→20:54)
[2020-11-27] MEDS: oxyCODONE/APAP 10/325MG (PERCOCET 10) TABLET PO PRN ×3 (08:48→20:55)
--- NOTE | 2020-11-27 11:12 | Progress Note ---
Subjective Date Seen by a Provider: Nov 27, 2020 Time Seen by a Provider: 11:00 Subjective/Events-last exam doing well. hb stable and INR in therapeutic range. ambulating. pain mostly controlled. Focused Exam Lactate Level 11/25/20 12:52: Lactic Acid Level 1.34 11/25/20 22:28: Lactic Acid Level 3.59*H Objective Exam Vital Signs Date Time Temp Pulse Resp B/P (MAP) Pulse Ox O2 Delivery O2 Flow Rate FiO2 11/27/20 09:00 Room Air 11/27/20 08:22 37.0 73 24 143/74 (97) 95 Room Air 11/27/20 07:00 72 11/27/20 03:24 35.8 73 18 112/59 (76) 93 Room Air 11/27/20 01:00 73 11/26/20 23:24 36.6 77 20 94/51 (65) 96 Room Air 11/26/20 20:58 Room Air 11/26/20 19:00 37.1 77 20 132/72 (92) 92 Room Air 11/26/20 19:00 80 11/26/20 18:00 Room Air 11/26/20 16:48 36.8 11/26/20 16:00 80 111/62 (78) 98 Nasal Cannula 3.00 11/26/20 15:00 80 29 121/68 (84) 97 Nasal Cannula 3.00 11/26/20 14:00 81 12 135/64 (81) 97 Nasal Cannula 3.00 11/26/20 13:00 78 11/26/20 13:00 79 35 126/67 (96) 97 Nasal Cannula 3.00 11/26/20 12:57 35.8 11/26/20 12:00 89 131/67 (88) 100 Nasal Cannula 3.00 I & O 11/27/20 07:00 Intake Total 2610 ml Output Total 2500 ml Balance 110 ml Capillary Refill : Less Than 3 Seconds General Appearance: No Apparent Distress HEENT: PERRL/EOMI Neck: Full Range of Motion Respiratory: Chest Non Tender, Lungs Clear, Normal Breath Sounds Cardiovascular: Regular Rate, Rhythm Gastrointestinal: normal bowel sounds, non tender, soft Extremity: Normal Capillary Refill Neurologic/Psychiatric: Alert, Oriented x3 Skin: Other (bilat buttock eccymosis with right hematoma, no active bleed) Lymphatic: No Adenopathy Results Lab Laboratory Tests 11/26/20 12:15: Glucometer 144H 11/26/20 12:52: White Blood Count 9.7, Red Blood Count 2.40L, Hemoglobin 7.7L, Hematocrit 22L, Mean Corpuscular Volume 90, Mean Corpuscular Hemoglobin 32, Mean Corpuscular Hemoglobin Concent 36, Red Cell Distribution Width 14.6H, Platelet Count 221, Mean Platelet Volume 8.8L, Immature Granulocyte % (Auto) 1, Neutrophils (%) ( Auto) 78H, Lymphocytes (%) (Auto) 12, Monocytes (%) (Auto) 10, Eosinophils (%) (Auto) 0, Basophils (%) (Auto) 0, Neutrophils # (Auto) 7.5, Lymphocytes # (Auto) 1.1, Monocytes # (Auto) 1.0, Eosinophils # (Auto) 0.0, Basophils # (Auto) 0.0, Immature Granulocyte # (Auto) 0.1, Prothrombin Time 25.5H, INR Comment 2.3H, Sodium Level 135, Potassium Level 3.3L, Chloride Level 97L, Carbon Dioxide Level 31, Anion Gap 7, Blood Urea Nitrogen 13, Creatinine 0.69, Estimat Glomerular Filtration Rate 117, BUN/Creatinine Ratio 19, Glucose Level 141H, Calcium Level 7.6L, Phosphorus Level 2.3, Magnesium Level 1.7 11/26/20 13:29: Lab Scanned Report Transfusion Reaction Form 11/27/20 03:38: White Blood Count 6.6, Red Blood Count 2.24L, Hemoglobin 7.1L, Hematocrit 21L, Mean Corpuscular Volume 93, Mean Corpuscular Hemoglobin 32, Mean Corpuscular Hemoglobin Concent 34, Red Cell Distribution Width 15.0H, Platelet Count 245, Mean Platelet Volume 9.0, Immature Granulocyte % (Auto) 1, Neutrophils (%) (Auto) 66, Lymphocytes (%) (Auto) 21, Monocytes (%) (Auto) 11, Eosinophils (%) (Auto) 1, Basophils (%) (Auto) 1, Neutrophils # (Auto) 4.3, Lymphocytes # (Auto) 1.4, Monocytes # (Auto) 0.7, Eosinophils # (Auto) 0.1, Basophils # (Auto) 0.0, Immature Granulocyte # (Auto) 0.1, Prothrombin Time 24.3H, INR Comment 2.1H, Sodium Level 138, Potassium Level 3.1L, Chloride Level 99, Carbon Dioxide Level 31, Anion Gap 8, Blood Urea Nitrogen 11, Creatinine 0.68, Estimat Glomerular Filtration Rate 119, BUN/Creatinine Ratio 16, Glucose Level 130H, Calcium Level 8.0L, Phosphorus Level 2.6, Magnesium Level 2.0 Microbiology 11/26/20 MRSA Screen - Final, Complete MRSA not isolated 11/25/20 Blood Culture - Preliminary, Resulted No growth Assessment/Plan Assessment/Plan Assess & Plan/Chief Complaint recurrent buttock bleed s/p incision and evacuation hematoma. INR in therapeutic range. hb stable. pain controlled and ambulating. home soon. f/u in office sunday(11/30) YVETTE CAUSEY MD Nov 27, 2020 11:12
[2020-11-27] MEDS ORDERED: OXYC1TAB12 PO (11:15)
--- NOTE | 2020-11-27 11:16 | Discharge Inst-Surgical ---
D/C Lap Instructions-PADILLA New, Converted, or Re-Newed RX: RX on Chart Follow Up sunday(11/30), call office on sunday for appt. Activity as tolerated No driving for 24 hours No driving while on pain medications dry dressing daily and prn Regular Diet Symptoms to Report: Fever over 101 degree F, Nausea/Vomiting Infection Signs and Symptoms to report: Increased redness, Foul odor of wound, Increased drainage Bathing instructions: May shower Operative Area Clean/Dry; Keep incision clean/dry If any problems/questions: Contact your physician or go to Emergency Room YVETTE CAUSEY MD Nov 27, 2020 11:16
--- NOTE | 2020-11-27 14:51 | Consultation-Cardiology ---
HPI-Cardiology Cardiology Consultation: Date of Consultation 11/27/20 Time Seen by a Provider: 14:20 Date of Admission Attending Physician Yvette Mesa MD Admitting Physician Bronson Madrigal DO Consulting Physician SHILOH HICKEY MD, MA, FACP, FACC, [facility], [facility] HPI: Chief Complaint: Reason for consultation: H/o mechanical AVR, supratherapeutic INR at presentation, bleeding HPI 60-year-old male who is chronically on Coumadin after mechanical aortic valve replacement many years ago. He states he had been abstaining from alcohol for nearly 20 yrs and restarted a few months and drinks heavily intermittently. He recently took a and then developed a hematoma on his buttocks and needed evacuation of the hematoma with Dr. Mesa. He was at home and his was attempting to change the packing and he developed profuse bleeding and brought him to the emergency room. The bleeding was very difficult to control in the emergency room. He was given a unit of FFP and transfused 2 units of PRBC. He does not report cp or palp or syncope or shortness of breath or swelling or weakness or focal weakness Review of Systems-Cardiology Review of Systems Constitutional: No malaise, No tiredness, No weight loss Eyes: No vision change Ears/Nose/Throat: No ear discharge, No nasal drainage, No recent hearing loss Respiratory: As described under HPI Cardiovascular: As described under HPI Gastrointestinal: No diarrhea, No nausea, No vomiting Genitourinary: No dysuria, No hematuria, No urine frequency changes Musculoskeletal: No back pain, No joint pain Skin: No rash, No ulcerations Psychiatric/Neurological: No seizure, No focal weakness, No syncope Hematologic: As described under HPI GAI-Ybwfvg-Ceyvsy Hx Patient Social History Smoking Status: Former Smoker Have you traveled recently?: No Alcohol Use?: Yes Pt feels they are or have been: No Tobacco type used: Cigarettes Immunizations Up To Date Date of Influenza Vaccine: Jun 01, 2020 Past Medical History PMH As described under Assessment. Family Medical History Family Medical History: He does not report fam h/o early CAD Allergies and Home Medications Allergies Coded Allergies: Iodinated Contrast Media (Verified Allergy, Unknown, 10/24/17) Home Medications Amlodipine Besylate 10 Mg Tablet, 10 MG PO HS, (Reported) Last Action: Reviewed Atorvastatin Calcium 40 Mg Tablet, 40 MG PO HS, (Reported) LAST FILLED 08-01-2020 #90/90 DAY SUPPLY Last Action: Reviewed Escitalopram Oxalate 20 Mg Tablet, 40 MG PO HS, (Reported) TAKES 2 (20MG) TABS Last Action: Reviewed Hydrochlorothiazide 25 Mg Tablet, 25 MG PO DAILY, (Reported) Last Action: Reviewed L.acidoph & ParacaseiAurelia.lactis 1 Each Capsule, 2 EACH PO DAILY, (Reported) Last Action: Reviewed Levothyroxine Sodium 25 Mcg Capsule, 25 MCG PO DAILY, (Reported) Last Action: Reviewed Losartan Potassium 100 Mg Tablet, 100 MG PO HS, (Reported) Last Action: Reviewed Multivitamin 1 Each Tablet, 1 EACH PO DAILY, (Reported) Last Action: Reviewed Oxycodone HCl/Acetaminophen 1 Each Tablet, 1 TAB PO Q6H PRN for PAIN-MODERATE Prescribed by: YVETTE MESA on 11/27/20 1115 Pantoprazole Sodium 40 Mg Tablet.dr, 40 MG PO HS, (Reported) Last Action: Reviewed Testosterone Cypionate 200 Mg/1 Ml Vial, 200 MG IM MONTHLY, (Reported) Last Action: Reviewed Ubidecarenone 200 Mg Capsule, 200 MG PO HS, (Reported) Last Action: Reviewed Warfarin Sodium 2.5 Mg Tablet, 2.5 MG PO HS, (Reported) Last Action: Reviewed [Osteo Biflex W/Turme] TAB, 1 EA PO HS, (Reported) Last Action: Reviewed Patient Home Medication List Home Medication List Reviewed: Yes Physical Exam-Cardiology Physical Exam Vital Signs/I&O 11/27/20 11/27/20 11/27/20 11/27/20 03:24 07:00 08:22 09:00 Temp 35.8 37.0 Pulse 73 72 73 Resp 18 24 B/P (MAP) 112/59 (76) 143/74 (97) Pulse Ox 93 95 O2 Delivery Room Air Room Air Room Air 11/27/20 11/27/20 12:02 12:52 Temp 37.6 Pulse 84 81 Resp 22 B/P (MAP) 124/66 (85) Pulse Ox 93 O2 Delivery Room Air 11/26/20 23:59 Intake Total 2170 ml Output Total 1725 ml Balance 445 ml Capillary Refill : Less Than 3 Seconds Constitutional: AAO x 3, well-developed, well-nourished HEENT: EOMI, hearing is well preserved; No xanthelasmas are seen Neck: carotid pulses are 2 + bilaterally, with good upstrokes Respiratory: No accessory muscle use; other (good, bilateral air entry) Cardiovascular: regular rate-rhythm, other (normal S1, mechanical S2, soft AMIRA at card base) Gastrointestinal: No tender; soft; No guarding, No rebound; audible bowel sounds Extremities: No clubbing, No cyanosis, No significant edema Neurologic/Psychiatric: oriented x 3, other (moves all limbs equally) Skin: No rash on exposed areas, No ulcerations on exposed areas Data Review Labs Laboratory Tests 11/27/20 03:38: White Blood Count 6.6, Red Blood Count 2.24L, Hemoglobin 7.1L, Hematocrit 21L, Mean Corpuscular Volume 93, Mean Corpuscular Hemoglobin 32, Mean Corpuscular Hemoglobin Concent 34, Red Cell Distribution Width 15.0H, Platelet Count 245, Mean Platelet Volume 9.0, Immature Granulocyte % (Auto) 1, Neutrophils (%) (Auto) 66, Lymphocytes (%) (Auto) 21, Monocytes (%) (Auto) 11, Eosinophils (%) (Auto) 1, Basophils (%) (Auto) 1, Neutrophils # (Auto) 4.3, Lymphocytes # (Auto) 1.4, Monocytes # (Auto) 0.7, Eosinophils # (Auto) 0.1, Basophils # (Auto) 0.0, Immature Granulocyte # (Auto) 0.1, Prothrombin Time 24.3H, INR Comment 2.1H, Sodium Level 138, Potassium Level 3.1L, Chloride Level 99, Carbon Dioxide Level 31, Anion Gap 8, Blood Urea Nitrogen 11, Creatinine 0.68, Estimat Glomerular Filtration Rate 119, BUN/Creatinine Ratio 16, Glucose Level 130H, Calcium Level 8.0L, Phosphorus Level 2.6, Magnesium Level 2.0 Microbiology 11/26/20 MRSA Screen - Final, Complete MRSA not isolated 11/25/20 Blood Culture - Preliminary, Resulted No growth Laboratory Tests 11/25/20 21:35 11/26/20 12:52 11/27/20 03:38 A/P-Cardiology Assessment/Admission Diagnosis S/p mechanical aortic valve replacement in [place] by Dr Aleks Roberto many years ago - Chronic warfarin therapy following AVR; presented with supra-therapeutic INR on 11/26/20 leading to uncontrollable bleeding at previous site of hematoma evacuation (11/24/20) from R buttock Heavy alcohol consumption in the last several months, per patient report - Rise in INR likely due to heavy alcohol consumption Discussion and Recomendations * He states that Dr Mesa has allowed resumption of warfarin, from a surgical sta ndpoint, beginning tomorrow * We have advised resumption of previous home and dose and close f/u with Dr Madrigal, who follows on his INR, beginning on 11/29/20 * Likely cause of INR elevation is recent heavy alcohol use. We discussed this in detail. We have advised him to quit alcohol use completely. If he does so, his chronic dose of warfarin will probably be sufficient. If he continues to drink, the dose may have to be altered. The only way to find the correct dose is to f/u on INR frequently until INR is completely stable, then [id number] f/u. Previously, according to his own report, he has been noncompliant with INR f/u. Now he understands all the issues and states will f/u with Dr Sheryl pepe who has followed his INR through the years. We have also advised him to f/u with he regular undergraduate intern whom he identifies as Dr Dyson * SHILOH Granados MD [facility] Nov 27, 2020 14:51
[2020-11-28 04:02] LABS: BASOPHILS % (AUTO) 1 % (0-10); EOSINOPHILS % (AUTO) 1 % (0-10); HEMATOCRIT 21 % (40-54); LYMPHOCYTES # (AUTO) 1.7 10^3/uL (1.0-4.0); LYMPHOCYTES % (AUTO) 23 % (12-44); MEAN CORPUSCULAR HEMOGLOBIN 34 pg (25-34); MEAN CORPUSCULAR HGB CONC 33 g/dL (32-36); MEAN CORPUSCULAR VOLUME 95 fL (80-99); MEAN PLATELET VOLUME 8.8 fL (9.0-12.2); MONOCYTES # (AUTO) 0.7 10^3/uL (0.0-1.0); MONOCYTES % (AUTO) 9 % (0-12); NEUTROPHILS # (AUTO) 4.7 10^3/uL (1.8-7.8); NEUTROPHILS % (AUTO) 65 % (42-75); PLATELET COUNT 314 10^3/uL (130-400); WHITE BLOOD COUNT 7.2 10^3/uL (4.3-11.0)
[2020-11-28 04:11] LABS: INR 1.7 (0.8-1.4); PROTHROMBIN TIME PATIENT 20.7 SEC (12.2-14.7)
[2020-11-28 04:15] LABS: POTASSIUM 3.3 MMOL/L (3.6-5.0)
[2020-11-28 04:16] LABS: CALCIUM 8.3 MG/DL (8.5-10.1)
[2020-11-28 04:20] LABS: CREATININE SERUM 0.71 MG/DL (0.60-1.30); PHOSPHORUS 2.9 MG/DL (2.3-4.7)
[2020-11-28 04:23] LABS: MAGNESIUM 1.8 MG/DL (1.6-2.4)
[2020-11-28] MEDS: POTASSIUM CL 10MEQ/50ML IVPB 50 ML IV SCH (04:35)
[2020-11-28] MEDS: KCL 20 MEQ TAB (K-DUR) PO SCH (05:24)
[2020-11-28] MEDS: MAGNESIUM 1 GM/100 ML IVPB 100 ML IV SCH (05:25)
[2020-11-28] MEDS ORDERED: KCL 20 MEQ TAB (K-DUR) PO ONE ×2 (06:00→08:00)
[2020-11-28] MEDS: DOCUSATE SODIUM 100 MG (COLACE) CAP PO SCH (09:03)
[2020-11-28] MEDS: oxyCODONE/APAP 10/325MG (PERCOCET 10) TABLET PO PRN (09:04)
== END 2020-11-28 14:50 | disposition home or self-care (01) | DRG 813 ==
LOC: EDUNIT# 21:29 → ER 21:30 → ICU 22:56 → 4TH 11-26 17:51
PROVIDERS: ADMIT Surgery; ATTEND Surgery
DX: D68.32 Hemorrhagic disorder due to extrinsic circulating anticoagulants (principal); D62 Acute posthemorrhagic anemia; E87.2 Acidosis; S30.0XXD Contusion of lower back and pelvis, subsequent encounter; E87.6 Hypokalemia; K21.9 Gastro-esophageal reflux disease without esophagitis; K44.9 Diaphragmatic hernia without obstruction or gangrene; I10 Essential (primary) hypertension; E78.00 Pure hypercholesterolemia, unspecified; G47.30 Sleep apnea, unspecified; E03.9 Hypothyroidism, unspecified; F17.220 Nicotine dependence, chewing tobacco, uncomplicated; H54.3 Unqualified visual loss, both eyes; F32.9 Major depressive disorder, single episode, unspecified; F10.10 Alcohol abuse, uncomplicated; Z87.01 Personal history of pneumonia (recurrent); Z79.01 Long term (current) use of anticoagulants; Z91.041 Radiographic dye allergy status; Z95.2 Presence of prosthetic heart valve; T45.515A Adverse effect of anticoagulants, initial encounter; W19.XXXD Unspecified fall, subsequent encounter
CPT/HCPCS: 36415; 71045; 80048; 80053; 82947; 83605; 83735; 84100; 85025; 85610; 86141; 86850; 86900; 86901; 86920; 87040; 87081; 87636

== ENCOUNTER 2021-02-01 10:58 | Outpatient (CLI) | payer BC ==
[2021-02-01] VITALS (7 sets, daily range): BP systolic 126–143; BP diastolic 69–89
[~2021-02-01 10:58] MED LIST changes: +OXYC1TAB12 PO; +TEST200V27 IM; +UBID200C36 PO
[2021-02-01] MEDS ORDERED: NS IV 500 ML 500 ML IV SCH ×2 (11:45→12:00)
[2021-02-01] MEDS ORDERED: CATHETER FLUSH 10 ML SYR IV PRN (11:45)
== END 2021-02-01 18:45 | disposition home or self-care (01) ==
LOC: SDC 10:58
PROVIDERS: ATTEND Internal Medicine
DX: R79.1 Abnormal coagulation profile (principal)
CPT/HCPCS: 36430; 86900; 86901; P9017

== ENCOUNTER → 2021-02-02 | Outpatient (CLI) | payer BC ==
--- NOTE | 2021-02-02 14:28 | Diagnostic Imaging Report ---
PROCEDURE: US Scrotum. TECHNIQUE: Multiple real-time grayscale images were obtained over the scrotum in various projections bilaterally. INDICATION: Right-sided testicular pain and epididymitis. FINDINGS: Right testicle measures 2.9 x 1.7 x 2.2 cm and the left testicle measures 2.2 x 1.4 x 1.3 cm. Both testes show homogeneous echotexture. No testicular mass is detected. There is blood flow to both testes. Epididymides are unremarkable. There is no varicocele or hydrocele. IMPRESSION: Unremarkable scrotal ultrasound. Dictated by: Dictated on workstation # [id number]
== END ==
LOC: RAD 10:45
PROVIDERS: ATTEND Internal Medicine
DX: N45.1 Epididymitis (principal); M79.81 Nontraumatic hematoma of soft tissue
CPT/HCPCS: 76870

== ENCOUNTER 2021-12-08 15:34 | Emergency (ER) | payer BC ==
[~2021-12-08] VITALS: Ht 182.8 cm; Wt 111.3 kg
[~2021-12-08 15:34] MED LIST changes: +NF-CRES10T PO; -ROSU10TA22 PO
[2021-12-08] MEDS ORDERED: BEBTELOVIMAB 175 MG/2 ML VIAL IV ONE (15:45)
[2021-12-08] MEDS ORDERED: NS IV 1000 ML 1,000 ML IV STA (15:51)
--- NOTE | 2021-12-08 15:55 | ED Respiratory ---
General Stated Complaint: INFUSION Source: patient Exam Limitations: no limitations (ANU [place]OPLES) History of Present Illness Date Seen by Provider: Dec 08, 2021 Time Seen by Provider: 15:53 Initial Comments Patient is a 61-year-old male with a history of hypertension, vertigo who presents ED with flulike symptoms. Symptoms started 9 days ago with body aches chills fatigue weakness. He was at [place] at the time. States that while he was at [place] that day that his symptoms started he got a liter of fluid as he was concerned that he was dehydrated. Went to a nearby urgent care and had a negative COVID influenza swab. Went to his primary care physician today tested positive. Was recommended come to ED for further evaluation for the continued symptoms and potential infusion. Patient reports increasing chest discomfort with congestion. Reports shortness of breath. Denies history of coronary artery disease, COPD or asthma. Patient oxygen was 93 to 95% on room air. Reports intermittent fever. Denies of any vomiting or diarrhea but did have some nausea initially. Denies any leg swelling, visual changes, sore throat, ear pain, neck pain, abdominal pain (ANU [place]LES) Allergies and Home Medications Allergies Coded Allergies: Iodinated Contrast Media (Verified Allergy, Unknown, 10/24/17) Patient Home Medication List Home Medication List Reviewed: Yes ([place]) Amlodipine Besylate (Amlodipine Besylate) 10 Mg Tablet, 10 MG PO HS, (Reported) Entered as Reported by: JONNIE CURRY on 06/03/20 1133 Atorvastatin Calcium (Atorvastatin Calcium) 40 Mg Tablet, 40 MG PO HS, (Reported) Entered as Reported by: BETSY BROWN on 11/24/20 1107 Escitalopram Oxalate (Escitalopram Oxalate) 20 Mg Tablet, 40 MG PO HS, (Reported) Entered as Reported by: NIKA VAZ on 05/08/18 1424 Hydrochlorothiazide (Hydrochlorothiazide) 25 Mg Tablet, 25 MG PO DAILY, (Reported) Entered as Reported by: BETSY BROWN on 11/24/20 1107 L.acidoph & Paracasei,B.lactis (Probiotic) 1 Each Capsule, 2 EACH PO DAILY, (Reported) Entered as Reported by: BETSY BROWN on 11/24/20 1107 Levothyroxine Sodium (Levothyroxine) 25 Mcg Capsule, 25 MCG PO DAILY, (Reported) Entered as Reported by: BETSY BROWN on 11/24/20 1107 Losartan Potassium (Losartan Potassium) 100 Mg Tablet, 100 MG PO HS, (Reported) Entered as Reported by: JONNIE CURRY on 06/03/20 1132 Multivitamin (Multivitamin) 1 Each Tablet, 1 EACH PO DAILY, (Reported) Entered as Reported by: JONNIE CURRY on 06/03/20 1132 Oxycodone HCl/Acetaminophen (Percocet 10-325 mg Tablet) 1 Each Tablet, 1 TAB PO Q6H PRN for PAIN-MODERATE Prescribed by: YVETTE CAUSEY on 11/27/20 1115 Pantoprazole Sodium (Pantoprazole Sodium) 40 Mg Tablet.dr, 40 MG PO HS, (Reported) Entered as Reported by: JONNIE CURRY on 06/03/20 1132 Testosterone Cypionate (Depo-Testosterone) 200 Mg/1 Ml Vial, 200 MG IM MONTHLY, (Reported) Entered as Reported by: JONNIE CURRY on 11/26/20 1014 Ubidecarenone (Co Q10) 200 Mg Capsule, 200 MG PO HS, (Reported) Entered as Reported by: JONNIE CURRY on 11/26/20 1014 Warfarin Sodium (Warfarin Sodium) 2.5 Mg Tablet, 2.5 MG PO HS, (Reported) Entered as Reported by: JONNIE CURRY on 06/03/20 1132 [Osteo Biflex W/Turme] TAB, 1 EA PO HS, (Reported) Entered as Reported by: JONNIE CURRY on 06/03/20 1132 Review of Systems Review of Systems Constitutional: chills, fever, malaise, weakness EENTM: No ear pain, No blurred vision, No double vision Respiratory: cough Cardiovascular: chest pain Gastrointestinal: No abdominal pain, No diarrhea; nausea; No vomiting Genitourinary: No decreased output, No discharge Musculoskeletal: No back pain, No joint pain Skin: No change in color, No change in hair/nails ([place]) All Other Systems Reviewed Negative Unless Noted: Yes (ANU [place]LES) Past Hzybofu-Xhvtol-Lyqgiq Hx Seasonal Allergies Seasonal Allergies: Yes ([place]) Past Medical History Surgery/Hospitalization HX: ARTIFICIAL VALVE Surgeries: Yes (Buttock hematoma evacuation) Appendectomy, Cardiac, Open Heart Surgery, Valve Replacement Respiratory: Yes Sleep Apnea Currently Using CPAP: No Currently Using BIPAP: No Cardiac: Yes (AORTIC VALVE REPLACEMENT 2007) High Cholesterol, Hypertension, Valvular Heart Disease Neurological: No Vertigo Reproductive Disorders: No Sexually Transmitted Disease: No HIV/AIDS: No Gastrointestinal: Yes Gastroesophageal Reflux, Chronic Constipation Musculoskeletal: No Endocrine: No HEENT: Yes (GLASSES) Loss of Vision: Bilateral Hearing Impairment: Denies Cancer: No Psychosocial: Yes Depression Integumentary: No Blood Disorders: Yes (Anticoagulated on warfarin) Adverse Reaction/Blood Tranf: No (N/A) (ANU [place]LES) Family Medical History No Pertinent Family Hx ([place]U [place]LES) Physical Exam Vital Signs - First Documented 12/08/21 15:45 Temp 36.2 Pulse 66 Resp 18 B/P (MAP) 169/110 (129) Pulse Ox 94 (JASS ALAMO MD) Capillary Refill : (ANU [place]LES) Height: 5'11.00" Weight: 241lbs. 0.0oz. [id number]; 30.47 BMI Method:Stated General Appearance: WD/WN, no apparent distress Eyes: Bilateral Eye Normal Inspection, Bilateral Eye PERRL, Bilateral Eye Abnormal EOM HEENT: PERRL/EOMI, normal ENT inspection, TMs normal, pharynx normal Neck: non-tender, full range of motion, supple Respiratory: chest non-tender, lungs clear, normal breath sounds, no respiratory distress, no accessory muscle use Cardiovascular: regular rate, rhythm, no edema, no gallop, no JVD Gastrointestinal: normal bowel sounds, non tender, soft, no organomegaly Extremities: normal range of motion, non-tender, normal inspection, no pedal edema 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, no motor/sensory deficits, alert, normal mood/affect Skin: normal color, warm/dry ([place]LES) Progress/Results/Core Measures Suspected Sepsis SIRS Temperature: Pulse: Respiratory Rate: Laboratory Tests 12/08/21 15:50: White Blood Count 5.4 Blood Pressure / Mean: Laboratory Tests 12/08/21 15:50: Creatinine 1.22, Platelet Count 302, Total Bilirubin 0.8 (ANU [place]LES) Results/Orders Lab Results Laboratory Tests Test 12/08/21 15:50 Range/Units White Blood Count 5.4 4.3-11.0 10^3/uL Red Blood Count 4.66 4.30-5.52 10^6/uL Hemoglobin 14.7 13.3-17.7 g/dL Hematocrit 42 40-54 % Mean Corpuscular Volume 91 80-99 fL Mean Corpuscular Hemoglobin 32 25-34 pg Mean Corpuscular Hemoglobin Concent 35 32-36 g/dL Red Cell Distribution Width 13.4 10.0-14.5 % Platelet Count 302 130-400 10^3/uL Mean Platelet Volume 9.2 9.0-12.2 fL Immature Granulocyte % (Auto) 0 % Neutrophils (%) (Auto) 33 L 42-75 % Lymphocytes (%) (Auto) 52 H 12-44 % Monocytes (%) (Auto) 13 H 0-12 % Eosinophils (%) (Auto) 1 0-10 % Basophils (%) (Auto) 1 0-10 % Neutrophils # (Auto) 1.8 1.8-7.8 10^3/uL Lymphocytes # (Auto) 2.8 1.0-4.0 10^3/uL Monocytes # (Auto) 0.7 0.0-1.0 10^3/uL Eosinophils # (Auto) 0.1 0.0-0.3 10^3/uL Basophils # (Auto) 0.0 0.0-0.1 10^3/uL Immature Granulocyte # (Auto) 0.0 0.0-0.1 10^3/uL Sodium Level 136 135-145 MMOL/L Potassium Level 3.0 L 3.6-5.0 MMOL/L Chloride Level 97 L 98-107 MMOL/L Carbon Dioxide Level 30 21-32 MMOL/L Anion Gap 9 5-14 MMOL/L Blood Urea Nitrogen 13 7-18 MG/DL Creatinine 1.22 0.60-1.30 MG/DL Estimat Glomerular Filtration Rate 67 BUN/Creatinine Ratio 11 Glucose Level 110 H 70-105 MG/DL Calcium Level 9.4 8.5-10.1 MG/DL Corrected Calcium 9.4 8.5-10.1 MG/DL Magnesium Level 1.7 1.6-2.4 MG/DL Total Bilirubin 0.8 0.1-1.0 MG/DL Aspartate Amino Transf (AST/SGOT) 122 H 5-34 U/L Alanine Aminotransferase (ALT/SGPT) 158 H 0-55 U/L Alkaline Phosphatase 87 40-136 U/L Troponin I < 0.028 <0.028 NG/ML B-Type Natriuretic Peptide 72.0 <100.0 PG/ML Total Protein 7.7 6.4-8.2 GM/DL Albumin 4.0 3.2-4.5 GM/DL (JASS ALAMO MD) Vital Signs/I&O 12/08/21 12/08/21 15:45 17:50 Temp 36.2 Pulse 66 68 Resp 18 18 B/P (MAP) 169/110 (129) 137/97 Pulse Ox 94 94 (JASS ALAMO MD) Vital Signs/I&O Capillary Refill : ([place]) ECG Comment Sinus rhythm with first-degree AV block, left axis deviation, left ventricular hypertrophy, 61 bpm, QRS duration 105 MS, QTc 446 MS. (ANU [place]OPLES) Departure Communication (PCP) Patient with flulike symptoms for the past 9 days. Had a positive COVID test today was sent to the ED for monoclonal antibody infusion. Patient met criteria. Was given the monoclonal antibody infusion after discussing the risk. Patient was requesting to proceed. Lab work was drawn secondary to his current symptoms of weakness fatigue chest tightness with the cough. Chest tightness appears to be with his cough. EKG showed sinus rhythm with first-degree AV block. Cardiac work-up unremarkable. Normal white blood count. Slight elevated liver enzymes likely secondary to the COVID. Chest x-ray was negative for pneumonia but did note some mild cardiomegaly. Denies history of coronary artery disease. Patient lab work showed he is slightly dehydrated. Patient was given a liter fluid and oral potassium for potassium at 3. Discussed continued drinking electrolytes including potassium and recheck with his primary care physician in the next few days. He is not up-to-date on his COVID vaccines. Recommend continue quarantine for the next 3 to 4 days. He is afebrile with stable vital signs. Oxygen 95% on room air ambulatory. If any worsening symptoms such as chest pain, shortness of breath return back to ED for further evaluation. (ANU [place]OPLES) Impression Primary Impression: COVID-19 Additional Impression: Dehydration Disposition: 01 HOME, SELF-CARE Condition: Stable Departure-Patient Inst. Decision time for Depature: 17:33 (ANU [place]OPLES) Referrals: AMITA BAUMAN DO (PCP/Family) Primary Care Physician Patient Instructions: COVID-19 ED PHYSICIAN ATTESTATION NOTE: I was present in the ER while FLOW MANAGER / PA saw the patient, but I was not involved in the care, exam, or management of the patient. (JASS ALAMO MD) [place]U [place] Dec 08, 2021 15:55 JASS ALAMO MD Dec 10, 2021 23:07
[2021-12-08 16:05] LABS: BASOPHILS % (AUTO) 1 % (0-10); EOSINOPHILS # (AUTO) 0.1 10^3/uL (0.0-0.3); EOSINOPHILS % (AUTO) 1 % (0-10); HEMATOCRIT 42 % (40-54); HEMOGLOBIN 14.7 g/dL (13.3-17.7); LYMPHOCYTES # (AUTO) 2.8 10^3/uL (1.0-4.0); LYMPHOCYTES % (AUTO) 52 % (12-44); MEAN CORPUSCULAR HEMOGLOBIN 32 pg (25-34); MEAN CORPUSCULAR HGB CONC 35 g/dL (32-36); MEAN CORPUSCULAR VOLUME 91 fL (80-99); MEAN PLATELET VOLUME 9.2 fL (9.0-12.2); MONOCYTES # (AUTO) 0.7 10^3/uL (0.0-1.0); MONOCYTES % (AUTO) 13 % (0-12); NEUTROPHILS # (AUTO) 1.8 10^3/uL (1.8-7.8); NEUTROPHILS % (AUTO) 33 % (42-75); PLATELET COUNT 302 10^3/uL (130-400); WHITE BLOOD COUNT 5.4 10^3/uL (4.3-11.0)
[2021-12-08 16:28] LABS: CHLORIDE 97 MMOL/L (98-107)
[2021-12-08 16:29] LABS: ALANINE AMINOTRANSFERASE 158 U/L (0-55); ALKALINE PHOSPHATASE 87 U/L (40-136); BILIRUBIN,TOTAL 0.8 MG/DL (0.1-1.0); BUN/CREATININE RATIO 11; CALCIUM 9.4 MG/DL (8.5-10.1); CARBON DIOXIDE 30 MMOL/L (21-32); CREATININE SERUM 1.22 MG/DL (0.60-1.30); GFR ESTIMATED 67; GLUCOSE 110 MG/DL (70-105); MAGNESIUM 1.7 MG/DL (1.6-2.4); SODIUM 136 MMOL/L (135-145); TOTAL PROTEIN 7.7 GM/DL (6.4-8.2)
[2021-12-08] MEDS ORDERED: KCL 20 MEQ TAB (K-DUR) PO ONE (17:00)
--- NOTE | 2021-12-08 17:27 | Diagnostic Imaging Report ---
INDICATION: cough COMPARISON: 11/25/2020 FINDINGS: Single frontal view of the chest demonstrates mild cardiomegaly. Pulmonary vasculature, however, is within normal limits. Sternotomy wires are noted. The lungs are well aerated and clear. No large pleural effusion or pneumothorax is seen. The visualized osseous structures show no acute abnormalities. IMPRESSION: 1. Mild cardiomegaly, but no evidence of failure or focal infiltrate. Dictated by: Dictated on workstation # [id number]
[2021-12-08 17:50] VITALS: BP 137/97
== END 2021-12-08 17:53 | disposition home or self-care (01) ==
LOC: EDUNIT# 15:34 → ER 15:38
DX: U07.1 COVID-19 (principal); E86.0 Dehydration; Z73.0 Burn-out
CPT/HCPCS: 36415; 71045; 80053; 83735; 83880; 84484; 85025; 93005

== ENCOUNTER → 2022-07-14 | Outpatient (CLI) | payer OTHER ==
--- NOTE | 2022-07-14 09:50 | Diagnostic Imaging Report ---
INDICATION: Follow-up hepatic lesion seen on CT PROCEDURE: Ultrasound abdomen complete. TECHNIQUE: Multiple real-time grayscale images were obtained of the abdomen in various projections. COMPARISON: CT abdomen pelvis of 05/08/2018 FINDINGS: The liver measures 20 cm in length. It has diffuse increased echogenicity indicative of steatosis. This causes diminished sound transmission. In the left hepatic lobe, there is a anechoic cyst measuring 2.6 cm. No solid hepatic mass. Hepatic veins are patent with normal directional flow. Portal vein is not well seen due to overlying bowel gas. The gallbladder is normally filled without gallstones, wall thickening, or pericholecystic fluid. The common bile duct is obscured by overlying bowel gas. No intrahepatic biliary dilation. The visualized portions of the pancreas are normal. Portions of the head and tail are obscured by overlying bowel gas. The kidneys are normal in size. No hydronephrosis, shadowing calculi, or suspicious mass lesion. The spleen is normal in size measuring 11 cm. There is no focal splenic mass. The aorta and IVC are normal in caliber where seen. IMPRESSION: 1. Diffuse hepatic steatosis. 2. Simple cysts in the left hepatic lobe. Dictated by: Dictated on workstation # [id number]
== END ==
LOC: RAD 08:30
PROVIDERS: ATTEND Internal Medicine Cardiovascular Disease
DX: K76.0 Fatty (change of) liver, not elsewhere classified (principal); K76.89 Other specified diseases of liver
CPT/HCPCS: 76700